=== PATIENT | female | born 1925 | race Caucasian/White ===

== ENCOUNTER 2016-10-07 19:08 | Inpatient (IN) | payer MEDICARE, OTHER ==
[~2016-10-07] VITALS: Ht 167.6 cm; Wt 65.8 kg
[2016-10-07 21:54] LABS: BASOPHILS 0.2 % (0-2); EOSINOPHILS 0.7 % (0-7); HEMOGLOBIN 14.4 g/dL (12-16); IMMATURE GRANULOCYTES 0.5 % (0-5); LYMPHOCYTES 10.3 % (15-50); MCH 31.9 pg (26.0-34.0); MCHC 33.5 g/dL (31.0-37.0); MCV 95.1 fL (80.0-100.0); MEAN PLATELET VOLUME 11.3 fL (7.4-10.4); MONOCYTES 7.6 % (2-11); NEUTROPHILS 80.7 % (40-80); PLATELET COUNT 174 10x3/uL (130-400); RBC 4.52 10x6/uL (4.00-5.40); RDW 14.5 % (11.5-14.5); WBC 12.4 10x3/uL (4.8-10.8)
[2016-10-07 22:03] LABS: ANION GAP 13.1 mmol/L (8-16); CALCIUM 9.1 mg/dL (8.5-10.1); CARBON DIOXIDE 27.6 mmol/L (21.0-32.0); CREATININE - SERUM 1.1 mg/dL (0.6-1.3); POTASSIUM - SERUM 4.7 mmol/L (3.5-5.1)
[2016-10-07] MEDS ORDERED: TENORMIN50 MG PO (22:06)
[2016-10-07] MEDS ORDERED: ALDACTONE25 MG PO (22:08)
[2016-10-07] MEDS ORDERED: ZANTAC150 MG PO (22:08)
[2016-10-07] MEDS ORDERED: PROTONIX40 MG PO (22:09)
[2016-10-07] MEDS ORDERED: ELIQUIS2.5 MG PO (22:09)
[2016-10-07] MEDS ORDERED: PROZAC20 MG PO (22:09)
[2016-10-07] MEDS ORDERED: LEVOXYL100 MCG PO (22:10)
[2016-10-07] MEDS ORDERED: XANAX0.25 MG PO (22:10)
[2016-10-07] MEDS ORDERED: VITAMIN D31000 UNIT PO (22:43)
[2016-10-07] MEDS ORDERED: TUMS X-STR300 MG PO (22:44)
[2016-10-07] MEDS ORDERED: ACETAMINOPHEN500 M1 PO (22:45)
--- NOTE | 2016-10-07 22:59 | NUR ---
RECVVIEVED FROM ER. ALERT ORIENTD. PATIENT IS [place]. ACCOMPANIED BY GROUP HOME STAFF.CC. FRACTURED RIGHT HIP. SL TO LAC INTACT WIHTOUT REDNESS OR EDEMA NOTED. ORIENTED TO ROOM. CL IN REACH
[2016-10-07 23:38] VITALS: BP 174/96; BMI 21.0
--- NOTE | 2016-10-08 02:15 | NUR ---
RESTING QUIETLY. NO DISTESS NOTED. CL IN REACH
[2016-10-08 04:00] VITALS: BP 127/77
--- NOTE | 2016-10-08 04:45 | NUR ---
RESTING QUIETLY. NO DISTRESS NOTED. CL IN REACH. MARCOS AALIYAH ON.
[2016-10-08 06:11] LABS: BASOPHILS 0.2 % (0-2); EOSINOPHILS 0.2 % (0-7); HEMATOCRIT 40.3 % (36.0-48.0); HEMOGLOBIN 13.6 g/dL (12-16); IMMATURE GRANULOCYTES 0.3 % (0-5); LYMPHOCYTES 10.5 % (15-50); MCH 31.9 pg (26.0-34.0); MCHC 33.7 g/dL (31.0-37.0); MCV 94.6 fL (80.0-100.0); MEAN PLATELET VOLUME 11.4 fL (7.4-10.4); MONOCYTES 8.8 % (2-11); PLATELET COUNT 162 10x3/uL (130-400); RBC 4.26 10x6/uL (4.00-5.40); RDW 14.4 % (11.5-14.5); WBC 9.7 10x3/uL (4.8-10.8)
--- NOTE | 2016-10-08 07:50 | NUR ---
PT AOX4 RESP EVEN AND NONLABORED PT DENIES NEEDS AT THIS TIME IV TO LEFT AC PATENT AT THIS TIME SRX2 BED AT LOWEST SETTING CALL LIGHT WITHIN REACH WILL CONTINUE TO MONITOR
[2016-10-08 08:31] VITALS: BP 157/81
--- NOTE | 2016-10-08 10:01 | NUR ---
Patient Name: ERIK BURROUGHS Admission Status: ER Accout number: [id number] Admission Date: 10-07-2016 : 1925 Admission Diagnosis:FRACTURE OF UNSP PART OF NECK OF RIGHT FEMUR, INIT Attending: JALEEL Current LOS: 1 Anticipated DC Date: 10-12-2016 Planned Disposition: Home with Home Health Primary Insurance: MEDICARE A & B Discharge Planning Comments: CM MET WITH PATIENT REGARDING D/C NEEDS AND PLANS. PATIENT STATED SHE LIVES AT THE [facility] ([facility]SI[facility]ING). PATIENT STATED SHE USES A WALKER AT TIMES AND HAS NO OTHER DME AT HOME. PATIENT HAS ASSISTANCE WITH HER MEDICATION AT THE FACILITY. PATIENTS PCP IS DR. HUANG AND USES [facility] ON [facility]. PATIENT KNOWS SHE WILL NEED REHAB AT DISCHARGE AND WANTS TO GO TO IP REHAB. CM WILL CONTINUE TO FOLLOW PATIENT WITH D/C NEEDS AND PLANS. PCP DR. SAL [facility] ON [facility] [phone] JEANA (SON) Tmd Teacher: Pricila Castro Is the patient Alert and Oriented? Yes 0 * How many steps to enter\exit or inside your home? 0 0 * PCP DR. HUANG 0 * Pharmacy [facility] ON [address]- [phone] * Preadmission Environment Assisted Living 0 * Facility Name [facility] 0 * ADLs Partial Dependent 0 * Partial ADLs (Assistance needed) Medication Management 0 * Equipment Walker 0 * List name and contact numbers for known caregivers / representatives who currently or will assist patient after discharge: JEANA (SON) [phone] (IN CHARGE OF EVERYTHING PER PATIENT) 0 * Community resources currently utilized Assisted Living 0 * Please name any agencies selected above. [facility] 0 * Additional services required to return to the preadmission environment? Yes 0 * Can the patient safely return to the preadmission environment? No 0 * Has this patient been hospitalized within the prior 30 days at any hospital? No 0 Grand Total: 0
[2016-10-08 10:58] VITALS: Ht 167.6 cm; Wt 65.8 kg
--- NOTE | 2016-10-08 11:48 | NUR ---
Rehab Note- The patient is scheduled for hip surgery. Will follow at this time for an acute inpatient rehab stay at [facility] when ready for discharge from the acute hospital. Thank you for this referral! Crystal Paris RN Clinical Liaison, [facility] Re[facility]
[2016-10-08 12:00] VITALS: BP 131/69
--- NOTE | 2016-10-08 16:04 | NUR ---
PT TAKEN TO SURGERY VIA BED AT THIS TIME
[2016-10-08 16:14] LABS: APPEARANCE CLEAR (CLEAR); BILIRUBIN NEGATIVE (NEGATIVE); COLOR YELLOW (YELLOW); GLUCOSE NEGATIVE (NEGATIVE); KETONE NEGATIVE (NEGATIVE); LEUKOCYTE ESTERASE NEGATIVE (NEGATIVE); NITRITE NEGATIVE (NEGATIVE); PROTEIN TRACE mg/dL (NEGATIVE); UROBILINOGEN NORMAL (NORMAL)
[2016-10-08 16:16] LABS: BACTERIA FEW /hpf (NONE SEEN); EPITHELIAL CELLS RARE /hpf (0-5); RED CELLS - URINE >50 /hpf (0-5); WHITE CELLS - URINE RARE /hpf (0-5)
[2016-10-08 21:11] VITALS: BP 105/66
--- NOTE | 2016-10-08 21:15 | NUR ---
RECIEVED FROM RECOVERY. DROWSY BUT RESPONDS TO VERBAL STIMULI. RESP EVEN AND UNALBORED. SPO2 @ 93% ON 2L PER NC. DRSG TO RIGHT HIP DRY/INTAC. NO DRAINAGE NOTED. PEREZ PATENT AND DRAINING CLEAR YELLOW URINE,. IV INFUSING TO LEFT HAND WIHTOUT REDNESS OR EDEMA NOTED. MARCOS AALIYAH ON. CL IN REACH
--- NOTE | 2016-10-08 23:31 | NUR ---
RN NOTE: PT BECAME COMBATIVE AND PULLED OFF DRESSING ON HIP AND PULLED OUT IV. RE-SITED IV TO RIGHT FA WITH 2 PERSON ASSIST USING 20 GUAGE CATHETER. GAVE ATIVAN 0.5 MG IVP PER PRN ORDER. PT CALMER NOW AND NOT FIGHTING HAVING DRESSING AND TELEMETRY BACK ON. WILL CONTINUE TO MONITOR FOR NEEDS.
[2016-10-09 00:05] VITALS: BP 137/78
[2016-10-09 04:00] VITALS: BP 159/69
--- NOTE | 2016-10-09 04:49 | NUR ---
RN NOTE: PT RESTING QUIETLY AT THIS TIME WITH EASY RESPIRATIONS. IV IN RIGHT FA PATENT WITH NS INFUSING AT 75 ML / HR. BED ALARM IN USE.
[2016-10-09 05:41] LABS: BASOPHILS 0.1 % (0-2); EOSINOPHILS 0 % (0-7); HEMATOCRIT 36.3 % (36.0-48.0); HEMOGLOBIN 12.3 g/dL (12-16); IMMATURE GRANULOCYTES 0.2 % (0-5); LYMPHOCYTES 7.5 % (15-50); MCH 31.9 pg (26.0-34.0); MCHC 33.9 g/dL (31.0-37.0); MCV 94.3 fL (80.0-100.0); MEAN PLATELET VOLUME 12.2 fL (7.4-10.4); MONOCYTES 9.3 % (2-11); NEUTROPHILS 82.9 % (40-80); PLATELET COUNT 139 10x3/uL (130-400); RBC 3.85 10x6/uL (4.00-5.40); RDW 14.4 % (11.5-14.5); WBC 11.4 10x3/uL (4.8-10.8)
[2016-10-09 06:03] LABS: ALBUMIN 2.9 g/dL (3.4-5.0); BILIRUBIN - TOTAL 1.09 mg/dL (0.2-1.3); CALCIUM 8.2 mg/dL (8.5-10.1); CARBON DIOXIDE 22.7 mmol/L (21.0-32.0); POTASSIUM - SERUM 4.7 mmol/L (3.5-5.1); PROTEIN - SERUM 6.5 g/dL (6.4-8.2)
[2016-10-09 06:04] LABS: CREATININE - SERUM 0.8 mg/dL (0.6-1.3)
--- NOTE | 2016-10-09 07:45 | NUR ---
PT AOX1 RESP EVEN AND NONLABORED PT DENIES NEEDS AT THIS TIME IV TO RIGHT FOREARM PATENT AND INTACT AT THIS TIME SRX2 BED AT LOWEST SETTING CALL LIGHT WITHIN REACH POSIMAT ON BED AND FUNCTIONING PROPERLY
[2016-10-09 07:55] VITALS: BP 167/94
--- NOTE | 2016-10-09 11:09 | OP ---
PATIENT NAME: ERIK BLAS MEDICAL RECORD: [id number] :[birth year] LOCATION:[id number] ADMISSION DATE:10/07/16 SURGEON: POOL WEI, DATE OF OPERATION: 10/08/2016 PROCEDURE PERFORMED: Right clinton hip arthroplasty. PREOPERATIVE DIAGNOSIS: Right femoral neck fracture that was displaced. POSTOPERATIVE DIAGNOSIS: Right femoral neck fracture that was displaced. INDICATIONS: Ms. Blas is an 89-year-old female who fell from standing height yesterday on 10/07/2016 and sustained a right femoral neck fracture. She was transferred to the Emergency Room and was seen in the Emergency Room and admitted overnight and surgery was performed today. SURGEON: Pool Wei D.O. DESCRIPTION OF PROCEDURE: The patient was consented preoperatively and in PACU and once that was done, and having discussed with her son who is the power of heel sewer, we proceeded for the procedure. She was taken to the operative suite, placed in supine position and given general anesthetic and was intubated. She was then moved over to the table and the left leg was placed in a well leg antony and the right leg was placed in ____ leg antony. At that time, a timeout was performed and she was indicated to correct side, site and correct patient and she was given a gram of Ancef preoperatively. After a timeout was done, the patient was prepped and draped in sterile fashion. The incision was marked out and a 10 blade knife was used to make an 8-cm incision over the right anterolateral hip. Careful dissection was made down to the fascia of the tensor fascia vinicio. Fascia was then divided and the muscle belly was swept off the fascia anteriorly. The next ____ was identified of rectus muscle and fascia was taken off of that. At that time, the ascending branch to the lateral femoral circumflex artery was identified. The Aquamantys was used to coagulate the site and the artery and veins were divided using a Bovie. Dissection was then carefully made down to the capsule. Capsulotomy was performed and tagged. The capsule was tagged and the fracture was seen. Fracture hematoma was suctioned out and the femoral head was extracted from the acetabulum. Hemostasis was performed throughout the whole procedure. We then sized the acetabulum. Femoral head was seen to be a 47. The femur was then prepped and a cookie cutter was used to get into the canal and then ____ rasp was used. We broached up to 5 and decided to cement a 4 and the canal was then prepped after further neck cuts were made to make a better neck cut and cement restrictor was placed in the canal. Cement was mixed with tobramycin and placed into the femoral canal. At that time, the implant with femoral stem was placed and held in place while the cement hardened. This was all done after trialing the sizes and once the cement had hardened, the bipolar head assembly was placed on the stem and the hip was reduced. It was seen to be in good position and did not dislocate easily, not at all after being externally rotated to 90 degrees and a shuck test was performed and did not come out of the acetabulum. The site was then irrigated copiously with normal saline and the capsule was closed using a 2-0 Ethibond in a botjxa-da-ijqdl stitch. The fascia was then closed using one 2-0 Ethibond in a qbvzth-pw-izjuf stitch and then 0 Vicryl was ran along the fascia to close it. The skin was then closed using 2-0 Vicryl in inverted interrupted fashion. The skin was closed with 4-0 Monocryl in a running subcuticular stitch and Dermabond was placed over the site. A Telfa and a Tegaderm was placed over OPERATIVE REPORT [id number] ERIK BLAS the site. The patient was awakened in the operating room and stable in recovery and taken to PACU. ESTIMATED BLOOD LOSS: Approximately 100 mL. TRANSINT:[id number] Voice Confirmation ID: [id number] DOCUMENT ID: [id number] POOL WEI DO at 1109 CC: [id number] DICTATION DATE: 10/08/162037 ARCHIVES SPECIALIST: 10/08/162209 ADM IN [place] [id number] [place] [id number]
[2016-10-09 16:20] VITALS: BP 138/89
[2016-10-09 20:00] VITALS: BP 181/93
--- NOTE | 2016-10-09 20:26 | NUR ---
rec'd. screaming out.alert but became confused post op.continues to take monitor off.drsg.dry and intact to rt. hip.foot warm pedal pulse present.wiggles toes and foot when touching bottom of foot' cindy uli intact will continue to monitor for any chges.in neurovascular status and follow current plan of care.
--- NOTE | 2016-10-09 22:59 | NUR ---
PT SLEEPING ATT, BED LOW AND LOCKED, CALL LIGHT IN REACH. NO S&S OF ACUTE DISRTESS NOTED. WILL CPOC.
[2016-10-10 06:27] LABS: BASOPHILS 0.1 % (0-2); EOSINOPHILS 0.1 % (0-7); HEMOGLOBIN 11.8 g/dL (12-16); IMMATURE GRANULOCYTES 0.3 % (0-5); LYMPHOCYTES 7.5 % (15-50); MCH 31.6 pg (26.0-34.0); MCHC 33.7 g/dL (31.0-37.0); MCV 93.6 fL (80.0-100.0); MEAN PLATELET VOLUME 12.7 fL (7.4-10.4); MONOCYTES 7.6 % (2-11); NEUTROPHILS 84.4 % (40-80); PLATELET COUNT 143 10x3/uL (130-400); RBC 3.74 10x6/uL (4.00-5.40); RDW 14.1 % (11.5-14.5); WBC 12.3 10x3/uL (4.8-10.8)
[2016-10-10 07:12] LABS: ALKALINE PHOSPHATASE 64 U/L (46-116); ALT (SGPT) 29 U/L (10-68); CALC OSMOLALITY 273 mosm/kg (275-300); CALCIUM 8.6 mg/dL (8.5-10.1); CARBON DIOXIDE 20.3 mmol/L (21.0-32.0); CHLORIDE - SERUM 100 mmol/L (98-107); CREATININE - SERUM 0.7 mg/dL (0.6-1.3); GLUCOSE 129 mg/dL (74-106); PROTEIN - SERUM 6.6 g/dL (6.4-8.2); SODIUM 134 mmol/L (136-145); UREA NITROGEN 25 mg/dL (7-18); eGFR NON AFRICAN AMERICAN 83 mL/min (90-120)
[2016-10-10 07:14] LABS: POTASSIUM - SERUM 3.7 mmol/L (3.5-5.1)
[2016-10-10 07:57] VITALS: BP 150/94
--- NOTE | 2016-10-10 08:39 | NUR ---
PEREZ PLACED PER ORDER IF PT WASN'T URINATING TO REPLACE PEREZ CATH PER URINARY RETENTION, AFTER PLACING PEREZ 1000 CC OF URINE CAME OUT, NO DISCOMFORT NOTED, WILL CONTINUE TO MONITOR
--- NOTE | 2016-10-10 09:00 | NUR ---
PATIENT IN LOW PEREZ POSITION RESTING QUIETLY WITH EYES CLOSED. RESPIRATIONS EVEN AND UNLABORED. SIDE RAILS UP X2. BED IN LOW POSITION. CALL LIGHT IN REACH.
--- NOTE | 2016-10-10 10:50 | NUR ---
SLEEPING, NO DISTRESS NOTED, BED LOWEST POSITION, CALL LIGHT IN REACH, WILL CONTINUE TO MONITOR
[2016-10-10 12:01] VITALS: BP 160/91
[2016-10-10 16:32] VITALS: BP 164/97
[2016-10-10 20:00] VITALS: BP 165/96
[2016-10-11] VITALS: BP 123/93
--- NOTE | 2016-10-11 03:21 | NUR ---
ASSESSED AT THE BEGINNING OF THE SHIFT. PT IS CONFUSED AND VERY ANXIOUS IF AWAKENED. SHE SLEPT THE FIRST OF THE SHIFT. AND THEN STARTED BEMOMING MORE RESTLY. SHE REFUSES TO WEAR HER GOUN AND AND WHEN DISCUSSED WITH HER SHE IS NOT COLD AND DOSENT CARE WHO SEE'S HER NAKED. HER PEREZ REMAINS IN PLACE AND HER IV SITE IS STILL UNTOUCHED DUE TO ADONIS WRAP SHE HAS OVER IT. THE DRESSING TO HER RIGHT HIP IS CLEAN DRY AND INPLACE. SHE WAS GIVEN NORCO FOR PAIN AND XANAX FOR ANXIETY JUST A WHILE AGO. AT HIS TIME SHE IS RESTING AND THE BED IS LOW, RAILS UP X'S 2 WITH THE CALL LIGHT AT HAND.
[2016-10-11 06:49] LABS: BASOPHILS 0.1 % (0-2); EOSINOPHILS 1.8 % (0-7); HEMOGLOBIN 11.4 g/dL (12-16); IMMATURE GRANULOCYTES 0.3 % (0-5); LYMPHOCYTES 8.4 % (15-50); MCH 31.4 pg (26.0-34.0); MCHC 33.5 g/dL (31.0-37.0); MCV 93.7 fL (80.0-100.0); MEAN PLATELET VOLUME 11.9 fL (7.4-10.4); MONOCYTES 8.4 % (2-11); PLATELET COUNT 155 10x3/uL (130-400); RBC 3.63 10x6/uL (4.00-5.40); RDW 14.3 % (11.5-14.5)
[2016-10-11 06:51] LABS: WBC 9.1 10x3/uL (4.8-10.8)
[2016-10-11 07:06] LABS: ALBUMIN 2.6 g/dL (3.4-5.0); ALKALINE PHOSPHATASE 67 U/L (46-116); ALT (SGPT) 23 U/L (10-68); CALCIUM 8.4 mg/dL (8.5-10.1); CHLORIDE - SERUM 102 mmol/L (98-107); CREATININE - SERUM 0.7 mg/dL (0.6-1.3); GLUCOSE 100 mg/dL (74-106); POTASSIUM - SERUM 3.7 mmol/L (3.5-5.1); PROTEIN - SERUM 6.4 g/dL (6.4-8.2); SODIUM 135 mmol/L (136-145); eGFR NON AFRICAN AMERICAN 83 mL/min (90-120)
[2016-10-11 07:07] LABS: CALC OSMOLALITY 276 mosm/kg (275-300); CARBON DIOXIDE 25.5 mmol/L (21.0-32.0); UREA NITROGEN 32 mg/dL (7-18)
--- NOTE | 2016-10-11 07:30 | NUR ---
RECIEVED PT DURING WALKING ROUNDS. PT RESTING IN BED WITH NO VISABLE SIGNS OF PAIN OR DISCOMFORT. ASSESSMENT DONE PER FLOWSHEET. PT CONFUSED AND PULLING AT GOWN AT THIS TIME. ATTEMPTED TO RE-ORIENT PT. BED IN LOW POSITION AND CALL LIGHT WITHIN REACH. WILL CONTINUE TO MONTIOR.
[2016-10-11 07:52] VITALS: BP 140/92
--- NOTE | 2016-10-11 12:00 | NUR ---
PT WAS ABLE TO STATE LOCATION, HER NAME AND WHAT YEAR IT WAS. PT KNEW WHAT HAD HAPPENED WITH SURGERY ECT. PT ASKED WHY I WAS ASKING HER QUESTIONS, EXPLAINED TO THE PT THAT SHE HAD BEEN CONFUSED AND PT BECAME VERY UPSET, WAS ABLE TO CALM THE PT DOWN. FURTHER EXPLAINED TO HER HER PLAN OF CARE. BED IN LOW POSITION AND CALL LIGHT WITHIN REACH. WILL CONTINUE TO MONITOR.
[2016-10-11 12:35] VITALS: BP 158/80
--- NOTE | 2016-10-11 15:50 | NUR ---
SPOKE WITH DR. MARCOS AT THIS TIME ABOUT PTS URINE OUTPUT. STATED THAT SHE WOULD LOOK AT PT AND PLACE ORDERS NEEDED. WILL CONTINUE TO MONITOR.
[2016-10-11 15:53] VITALS: BP 153/69
--- NOTE | 2016-10-11 19:35 | NUR ---
RECIEVED SHIFT REPORT. PT IS LYING IN BED. PT IS ORIENTED TO SELF ONLY. IV IS PATENT AND FLUIDS ARE RUNNING PER ORDER. PT DENIES ANY PAIN AT THIS TIME. PT REQUIRES MINIMAL ASSISTANCE TURNING IN BED FOR COMFORT AND SKIN CARE. PEREZ IS DRAINING URINE BY GRAVITY. DRESSING TO RIGHT HIP C/D/I. SCD'S OFF AT THIS TIME. O2 @ 2 PER NASAL CANNULA. NO NEEDS ARE VERBALIZED AT THIS TIME. WILL CONTINUE TO MONITOR. SIDE RAILS ARE UP X 2. BED IS IN LOWEST POSITION. MARCOS MAT IS ON FOR SAFETY. CALL LIGHT IS WITHIN REACH.
[2016-10-11 20:00] VITALS: BP 140/84
--- NOTE | 2016-10-11 21:00 | NUR ---
PT IN ROOM YELLING OUT FOR MOMMA. PT IS NOT ABLE TO BE ORIENTED AT THIS TIME. PT PULLING AT PEREZ AND IV. ADMINISTERED PRESCRIBED PRN ATIVAN PER ORDER. SHIFT ASSESSMENT COMPLETED. WILL MONITOR. SIDE RAILS X 2. BED IS LOW. MARCOS ON. CALL LIGHT IN REACH.
--- NOTE | 2016-10-11 23:03 | NUR ---
PT SCRATCHING AT INCISION SITE. ADMINISTERED PRESCRIBED PRN BENADRYL PER ORDER. WILL MONITOR. SIDE RAILS X 2. BED LOW. MARCOS ON. CALL LIGHT IN REACH.
[2016-10-12 04:00] VITALS: BP 142/90
[2016-10-12 04:54] LABS: BASOPHILS 0.1 % (0-2); EOSINOPHILS 2.3 % (0-7); HEMATOCRIT 33.8 % (36.0-48.0); HEMOGLOBIN 11.4 g/dL (12-16); IMMATURE GRANULOCYTES 0.2 % (0-5); LYMPHOCYTES 9.6 % (15-50); MCH 31.6 pg (26.0-34.0); MCHC 33.7 g/dL (31.0-37.0); MCV 93.6 fL (80.0-100.0); MEAN PLATELET VOLUME 12.1 fL (7.4-10.4); MONOCYTES 9.7 % (2-11); NEUTROPHILS 78.1 % (40-80); PLATELET COUNT 167 10x3/uL (130-400); RBC 3.61 10x6/uL (4.00-5.40); RDW 14.1 % (11.5-14.5); WBC 8.4 10x3/uL (4.8-10.8)
[2016-10-12 05:15] LABS: ALBUMIN 2.6 g/dL (3.4-5.0); ANION GAP 14.3 mmol/L (8-16); BILIRUBIN - TOTAL 1.2 mg/dL (0.2-1.3); CALCIUM 8.4 mg/dL (8.5-10.1); CARBON DIOXIDE 22.1 mmol/L (21.0-32.0); POTASSIUM - SERUM 3.4 mmol/L (3.5-5.1); PROTEIN - SERUM 6.3 g/dL (6.4-8.2)
[2016-10-12 05:20] LABS: CREATININE - SERUM 0.9 mg/dL (0.6-1.3)
--- NOTE | 2016-10-12 08:08 | NUR ---
AWAKE AND ALERT. ORIENTED TO SELF ONLY. LUNGS HAVE FAINT CRACKLES IN BILATERALL LOWER LOBES. NO COUGH NOTED. SKIN IS INTACT WITHOUT REDNESS EXCEPT INCISION TO RIGHT HIP WHICH HAS A DRY INTACT DRESSING IN PLACE. PEREZ PATNET WITH CLEAR YELLOW URINE. IV TO RIGHT FOREARM IS PATNET WITHOUT REDNESS AT INSERTION SITE. DENIES NEEDS. BP UP THIS AM. WILL TREAT PAIN AND MONITOR.
[2016-10-12 08:23] VITALS: BP 192/92
--- NOTE | 2016-10-12 09:00 | NUR ---
VERY RESTLESS AND BP ELEVATED. GIVEN ONE HYDROCODONE PO FOR SAME. WILL MONITOR.
--- NOTE | 2016-10-12 10:30 | NUR ---
FINALLY TOOK ALL OF AM MEDS. CONTINUES TO SIP ON POTASSIUM. SYMPTOMS OF PAIN DECREASED.
[2016-10-12 12:05] VITALS: BP 137/78
--- NOTE | 2016-10-12 12:30 | NUR ---
CLEAR LIQUID TRAY SERVED IN ROOM. REFUSSED TO EAT AT THIS TIME.
--- NOTE | 2016-10-12 14:00 | NUR ---
VERY RESTLESS AT THIS TIME. TALKED WITH HER ABOUT FAMILY TO HELP CALM HER. DENIES PAIN AT THIS TIME. WILL MONITOR.
--- NOTE | 2016-10-12 15:04 | NUR ---
NUTRIITON MONITORING & EVAL CHART REVIEWED. SPOKE WITH NURSING, DIET ADVANCED TO REG SOFT FOR DINNER. WILL MONITOR INTAKE. RD FOLLOWING
[2016-10-12 16:05] VITALS: BP 115/70
--- NOTE | 2016-10-12 17:45 | NUR ---
ATE A FEW BITES OF REGULAR FOOD WITH ASSIST FROM STAFF. REFUSED MORE. NO CHANGES NOTED. URINE OUTPUT IS LOW THIS SHIFT AT 250cc. WILL MONITOR.
--- NOTE | 2016-10-12 19:30 | NUR ---
RECIEVED SHIFT REPORT. PT IS LYING IN BED. PT IS CONFUSED AND ONLY ORIENTED TO SELF AT THIS TIME. PT IS TUGGING AT PEREZ AND ROLLING AROUND IN THE BED. PEREZ HAS MINIMAL DRAINAGE IN PEREZ BAG AT THIS TIME. IV IS PATENT AND FLUIDS ARE RUNNING PER ORDER. SCD'S OFF AT THIS TIME. DRESSING TO RIGHT HIP C/D/I. WILL CONTINUE TO MONITOR. SIDE RAILS ARE UP X 3. BED IS IN LOWEST POSITION. MARCOS MAT IS ON FOR SAFETY. CALL LIGHT IS WITHIN REACH.
[2016-10-12 20:00] VITALS: BP 127/79
--- NOTE | 2016-10-12 20:33 | NUR ---
SHIFT ASSESSMENT COMPLETED. PT HAS MINIMAL GRIMACE ON FACE AND IS STILL PULLING AT HER LINES. ADMINISTERED PRESCRIBED PRN NORCO AND XANAX PER ORDER. WILL MONITOR. SIDE RAILS X 3. BED LOW. MARCOS ON. CALL LIGHT IN REACH.
[2016-10-13 02:13] LABS: BASOPHILS 0.1 % (0-2); EOSINOPHILS 0.2 % (0-7); HEMATOCRIT 32.5 % (36.0-48.0); HEMOGLOBIN 11.2 g/dL (12-16); IMMATURE GRANULOCYTES 0.6 % (0-5); LYMPHOCYTES 7.1 % (15-50); MCH 31.8 pg (26.0-34.0); MCHC 34.5 g/dL (31.0-37.0); MCV 92.3 fL (80.0-100.0); MEAN PLATELET VOLUME 11.8 fL (7.4-10.4); MONOCYTES 8.2 % (2-11); NEUTROPHILS 83.8 % (40-80); PLATELET COUNT 197 10x3/uL (130-400); RBC 3.52 10x6/uL (4.00-5.40); RDW 14.1 % (11.5-14.5); WBC 9.7 10x3/uL (4.8-10.8)
[2016-10-13 02:34] LABS: ALBUMIN 2.8 g/dL (3.4-5.0); ANION GAP 17.9 mmol/L (8-16); BILIRUBIN - TOTAL 1.9 mg/dL (0.2-1.3); CALCIUM 8.6 mg/dL (8.5-10.1); CREATININE - SERUM 0.9 mg/dL (0.6-1.3); POTASSIUM - SERUM 3.9 mmol/L (3.5-5.1); PROTEIN - SERUM 6.1 g/dL (6.4-8.2)
--- NOTE | 2016-10-13 02:50 | NUR ---
BLADDER SCAN REVEALS NO URINE IN BLADDER. PT WITH NO DISTENTION TO BLADDER. WILL CALL MD POPCORN MACHINE OPERATOR FOR ORDERS.
--- NOTE | 2016-10-13 03:00 | NUR ---
PT WITH 175ML DARK URINE OUTPUT. PAGE PLACED TO BOBBY. WILL AWAIT CALL BACK.
--- NOTE | 2016-10-13 03:30 | NUR ---
NO CALL BACK AT THIS TIME. WILL CALL ANSWERING SERVICE AND HAVE PAGED AGAIN.
--- NOTE | 2016-10-13 03:35 | NUR ---
CALL RECIEVED BACK FROM BOBBY STERILE TECHNICIAN. INFORMED OF URINE OUTPUT AND BLADDER SCAN RESULTS. NEW ORDERS FOR 200ML BOLUS AND INCREASE IVF TO 100ML/HR. WILL MONITOR.
--- NOTE | 2016-10-13 03:40 | NUR ---
BOLUS STARTED AT THIS TIME.
[2016-10-13 04:00] VITALS: BP 139/75
--- NOTE | 2016-10-13 07:43 | NUR ---
AROUSES TO VERBAL STIMULATION. ORIENTED TO SELF ONLY. LUNGS ARE CLEAR BILATERALLLY, NO COUGH NOTED. SKIN IS INTACT WITHOUT REDNESS EXCEPT INCISION TO RIGHT HIP WHICH HAS A DRY INTACT DRESSING IN PLACE. IV TO RIGHT FOREARM IS PATENT WITHOUT REDNESS AT INSERTION SITE. NO NEEDS NOTED. PEREZ PATENT WITH DARK TEA COLORED URINE.
[2016-10-13 09:05] VITALS: BP 122/78
--- NOTE | 2016-10-13 12:14 | NUR ---
PT SEEN FOR ASSESSMENT. 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 BUODROS APPLIED TO BUTTOCK AND TURNED ON SIDE. MARCOS MAT ON FOR SAFETY. CALL LIGHT IN REACH
[2016-10-13 13:22] VITALS: BP 163/80
--- NOTE | 2016-10-13 13:49 | NUR ---
PT TURNED FREQ FROM SIDE TO SIDE. CURRENTLY POSITIONED ON RIGHT SIDE FOR COMFORT WITH PILLOW TO BACK AND 1 BETWEEN KNEES. RESTING WITH EYES CLOSED AND RESP EVEN AND UNLABORED. MARCOS MAT ALARM ON FOR SAFETY AND CALL LIGHT IN REACH
[2016-10-13 17:36] VITALS: BP 142/79
--- NOTE | 2016-10-13 17:50 | NUR ---
SON CALLED THIS AFTERNOON. WILL BE HERE TOMORROW TO HELP PLACE MOM. TURNED FREQ AND CURRENTLY ON BACK. DRESSING REPLACED RIGHT HIP-PULLED OFF EARILER. PEREZ WITH DARK MACO URINE. MARCOS ALARM ON FOR SAFETY. CALL LIGHT IN REACH
--- NOTE | 2016-10-13 19:40 | NUR ---
RECIEVED SHIFT REPORT. PT IS LYING IN BED. PT IS CONFUSED AND PULLING AT PEREZ. PT APPEARS TO BE IN NO DISTRESS, JUST AGITATED AND RESTLESS. IV IS PATENT AND FLUIDS ARE RUNNING PER ORDER. PT TURNS SELF IN BED OFTEN. SCD'S OFF AT THIS TIME. IV IS PATENT AND FLUIDS ARE RUNNING PER ORDER. WILL CONTINUE TO MONITOR. SIDE RAILS ARE UP X 3. BED IS IN LOWEST POSITION. MARCOS MAT IS ON FOR SAFETY. CALL LIGHT IS WITHIN REACH.
[2016-10-13 20:00] VITALS: BP 147/85
--- NOTE | 2016-10-13 20:05 | NUR ---
SHIFT ASSESSMENT COMPLETED. PT IN BED PULLING AT PEREZ AND PULLING AT IV. PT TRYING TO CLIMB OUT OF BED. PT VERY ANXIOUS AND RESTLESS AT THIS TIME. ADMINISTERED PRESCRIBED PRN ATIVAN PER ORDER. WILL MONITOR. SIDE RAILS X 2. BED LOW. MARCOS ON. CALL LIGHT IN REACH.
[2016-10-14 05:50] LABS: BASOPHILS 0.1 % (0-2); EOSINOPHILS 0.1 % (0-7); HEMATOCRIT 34.1 % (36.0-48.0); HEMOGLOBIN 11.5 g/dL (12-16); IMMATURE GRANULOCYTES 1.3 % (0-5); LYMPHOCYTES 7.8 % (15-50); MCH 31.6 pg (26.0-34.0); MCHC 33.7 g/dL (31.0-37.0); MCV 93.7 fL (80.0-100.0); MEAN PLATELET VOLUME 11.5 fL (7.4-10.4); MONOCYTES 7.9 % (2-11); NEUTROPHILS 82.8 % (40-80); PLATELET COUNT 193 10x3/uL (130-400); RBC 3.64 10x6/uL (4.00-5.40); RDW 14.7 % (11.5-14.5)
[2016-10-14 06:01] LABS: WBC 15.3 10x3/uL (4.8-10.8)
[2016-10-14 06:09] LABS: ALBUMIN 3.1 g/dL (3.4-5.0); BILIRUBIN - TOTAL 2.66 mg/dL (0.2-1.3); CALCIUM 8.4 mg/dL (8.5-10.1); CARBON DIOXIDE 17.3 mmol/L (21.0-32.0); CREATININE - SERUM 0.9 mg/dL (0.6-1.3)
[2016-10-14 06:13] LABS: ANION GAP 19.2 mmol/L (8-16); POTASSIUM - SERUM 4.5 mmol/L (3.5-5.1)
[2016-10-14 09:41] VITALS: BP 120/67
--- NOTE | 2016-10-14 10:29 | NUR ---
Rehab Note- Attempted to visit with the patient, patient didn't respond to verbal stimuli. The patient is having labored breathing with 2L/NC oxygen, and constantly moving in the bed- spoke with the patient's nurse and viewed the patient- stated this has been her normal since having surgery. The patient is unable to participate in the required 3hrs of therapy per day. Spoke with NICANOR Mcnulty- stated that she was going to call her son to discuss discharge options. Thank you for this referral! Crystal Paris RN Clinical Liaison, [facility] Re[facility]
[2016-10-14 12:55] VITALS: BP 126/62
[2016-10-14 13:08] LABS: AMYLASE - SERUM 71 U/L (25-115); LIPASE 217 U/L (73-393)
[2016-10-14 14:39] LABS: APPEARANCE HAZY (CLEAR); BACTERIA FEW /hpf (NONE SEEN); COLOR AMBER (YELLOW); LEUKOCYTE ESTERASE TRACE (NEGATIVE); MUCUS <1+ /lpf (NONE SEEN); RED CELLS - URINE >50 /hpf (0-5); WHITE CELLS - URINE 0-5 /hpf (0-5)
[2016-10-14 14:40] LABS: BILIRUBIN NEGATIVE (NEGATIVE); GLUCOSE NEGATIVE (NEGATIVE); KETONE NEGATIVE (NEGATIVE); PROTEIN 1+ mg/dL (NEGATIVE); UROBILINOGEN NORMAL (NORMAL)
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
--- NOTE | 2016-10-14 14:58 | NUR ---
PT CONFUSED AND NONVERBALLY RESPONSIVE AT THIS TIME SRX2 BED AT LOWEST SETTING CALL LIGHT AT THIS TIME IV TO RIGHT FOREARM PATENT AT THIS TIME SRX2 BED AT LOWEST SETTING CALL LIGHT WITHIN REACH WILL CONTINUE TO MONITOR
[2016-10-14 16:20] VITALS: BP 104/52
[2016-10-14 16:56] LABS: NITRITE NEGATIVE (NEGATIVE)
[2016-10-14 19:19] LABS: INR 2.17 (0.85-1.17); PROTIME 24.2 SECONDS (11.6-15.0)
--- NOTE | 2016-10-14 19:35 | NUR ---
RECIEVED SHIFT REPORT. PT IS LYING IN BED. PT IS CONFUSED AT THIS TIME. IV IS PATENT AND FLUIDS ARE RUNNING PER ORDER. SCD'S OFF AT THIS TIME. O2 @ 2 PER NASAL CANNULA. PEREZ WITH SMALL AMOUNT OF DARK URINE. DRESSING TO RIGHT HIP HAS BEEN PULLED OFF BY PT. PT HAS MINIMAL ANXIETY AND IS RESTLESS IN THE BED. FAMILY IS REQUESTING A SITTER TO COME IN AND STATES THEY ARE WILLING TO PAY AND IS ASKING IF THE NURSING STAFF CAN FIND SOMEONE. SIDE RAILS ARE UP X 3. BED IS IN LOWEST POSITION. MARCOS MAT IS ON FOR SAFETY. CALL LIGHT IS WITHIN REACH.
[2016-10-14 19:47] LABS: T4 THYROXINE 5.3 ug/dL (4.7-13.3); THYROID STIMULATING HORMONE 1.38 uIU/mL (0.36-3.74)
[2016-10-14 20:00] VITALS: BP 159/80
--- NOTE | 2016-10-14 20:45 | NUR ---
SITTER ARRIVED AT THIS TIME PER FAMILY REQUEST. SITTER TO SIT WITH PT FROM [phone].
--- NOTE | 2016-10-14 22:23 | NUR ---
SHIFT ASSESSMENT COMPLETED. NIGHT MEDS NOT GIVEN DUE TO PT NOT SWALLOWING AT THIS TIME. PT DOES NOT ATTEMPT TO DRINK ANY WATER WHEN OFFERED. PT RESPONDING TO PAIN AT THIS TIME AND IS MOANING. SITTER IS AT THE BEDSIDE. SIDE RAILS X 3. BED LOW. MARCOS ON. CALL LIGHT IN REACH.
--- NOTE | 2016-10-15 01:43 | NUR ---
PT IV TO RIGHT FOREARM LEAKING. D/C'D WITH CATHETER TIP INTACT. NEW IV SITED TO LEFT FOREARM X 1 ATTEMPT. 22G. GOOD BLOOD RETURN. FLUSHES W/O DIFFICULTY. FLUIDS HOOKED UP PER ORDER. SITTER AT BEDSIDE. WILL MONITOR. SIDE RAILS X 2. BED LOW. MARCOS MAT ON. CALL LIGHT IN REACH.
[2016-10-15 04:00] VITALS: BP 182/94
[2016-10-15 05:48] LABS: BASOPHILS 0.1 % (0-2); EOSINOPHILS 0.1 % (0-7); HEMATOCRIT 34.1 % (36.0-48.0); HEMOGLOBIN 11.4 g/dL (12-16); IMMATURE GRANULOCYTES 1.8 % (0-5); MCH 31.7 pg (26.0-34.0); MCHC 33.4 g/dL (31.0-37.0); MCV 94.7 fL (80.0-100.0); MEAN PLATELET VOLUME 11.7 fL (7.4-10.4); MONOCYTES 7.9 % (2-11); NEUTROPHILS 71.1 % (40-80); PLATELET COUNT 185 10x3/uL (130-400); RDW 14.9 % (11.5-14.5); WBC 17.7 10x3/uL (4.8-10.8)
[2016-10-15 07:15] LABS: ALBUMIN 3.1 g/dL (3.4-5.0); ANION GAP 20.4 mmol/L (8-16); BILIRUBIN - TOTAL 2.81 mg/dL (0.2-1.3); CALCIUM 8.4 mg/dL (8.5-10.1); CARBON DIOXIDE 17.1 mmol/L (21.0-32.0); CREATININE - SERUM 1.1 mg/dL (0.6-1.3); POTASSIUM - SERUM 4.5 mmol/L (3.5-5.1)
--- NOTE | 2016-10-15 08:36 | NUR ---
PT SEEN AND ASSESSED. NO RESPONSE TO VERBAL STIMULI. MOANS WHEN MOVED. POSITIONED CURRENTLY ON RIGHT SIDE WITH PILLOW TO BACK. BUTTOCK IS NO LONGER RED. PEREZ NOTED TO BE DARK YELLOW. SCD ON BILAT. OXYGEN IN MOUTH DUE TO MOUTH BREAKTHING. SITTER AT BEDSIDE. MARCOS ALARM ON FOR SAFETY. CALL LIGHT IN REACH
[2016-10-15 09:02] VITALS: BP 160/101
--- NOTE | 2016-10-15 09:44 | NUR ---
CM MET WITH SON (JEANA), DAUGHTER AND GRANDDAUGHTER REGARDING D/C NEEDS AND PLANS. FAMILY CHOSE [facility] FOR THEIR MOTHER WHEN SHE IS READY FOR DISCHARGE. THE [facility] FORM WAS SIGNED AND [facility] WAS CALLED. FAMILY STATED THEIR FATHER HAD BEEN AT [facility] BEFORE AND THATS WHY THEY CHOSE THE FACILITY.
[2016-10-15 12:43] LABS: TROPONIN-I 0.108 ng/mL (0.000-0.060)
[2016-10-15 13:26] VITALS: BP 175/99
--- NOTE | 2016-10-15 14:34 | NUR ---
Nutrition Follow Up: Per chart pt is unresponsive. Pt has eaten 0% x last 5 meals. No BM since admit. Labs reviewed. Meds noted including Lactulose. Rec changing diet to NPO until pt becomes responsive. RD following.
[2016-10-15 16:28] VITALS: BP 133/74
--- NOTE | 2016-10-15 18:20 | NUR ---
PT RESPIRATIONS LESS LABORED AT THIS TIME. APPEARS MORE COMFORTABLE BUT STILL UNRESPONSIVE. FAMILY CALLED TO CHECK ON PATIENT-NO CHANGE IN CONDITION. HAS BEEN TURNED EVERY 2 HOURS. BED ALARM FOR SAFETY. CALL LIGHT IN REACH
--- NOTE | 2016-10-15 18:37 | NUR ---
WENT TO REPOSITION PATIENT AND BED WAS SOAKED WITH URINE. PEREZ DRAINING STILL CLEAR YELLOW URINE. LINENS CHANGED AND SMALL BATH GIVEN. BED ALARM ON FOR SAFETY CALL LIGHT IN REACH
--- NOTE | 2016-10-15 19:23 | NUR ---
RECIEVED LYING IN BED WITH EYES CLOSED. UNRESPONSIVE TO VERBAL STIMULI OR TOUCH. DRESSING TO RIGHT HIP INTACT. O2@ 3.5 LITERS PER N/C IN PLACE. NO S/S OF DISTRESS OBSERVED.
[2016-10-15 20:00] VITALS: BP 122/84
[2016-10-16] VITALS: BP 181/76
[2016-10-16 04:00] VITALS: BP 194/104
--- NOTE | 2016-10-16 05:22 | NUR ---
IV INFILTRATED TO LEFT FA. RESTARTED IN RIGHT AC. NS INFUSING AT 30CC/HR.
[2016-10-16 05:54] LABS: BASOPHILS 0.2 % (0-2); EOSINOPHILS 0.1 % (0-7); HEMATOCRIT 34.7 % (36.0-48.0); HEMOGLOBIN 11.7 g/dL (12-16); IMMATURE GRANULOCYTES 2.5 % (0-5); MCH 31.6 pg (26.0-34.0); MCHC 33.7 g/dL (31.0-37.0); MCV 93.8 fL (80.0-100.0); MEAN PLATELET VOLUME 11.9 fL (7.4-10.4); MONOCYTES 8.3 % (2-11); NEUTROPHILS 70.9 % (40-80); PLATELET COUNT 188 10x3/uL (130-400); RDW 15.6 % (11.5-14.5); WBC 17.2 10x3/uL (4.8-10.8)
[2016-10-16 06:02] LABS: PROTIME 20.2 SECONDS (11.6-15.0)
[2016-10-16 06:09] LABS: BILIRUBIN - TOTAL 3.9 mg/dL (0.2-1.3); CALCIUM 8.5 mg/dL (8.5-10.1); CREATININE - SERUM 0.9 mg/dL (0.6-1.3); PROTEIN - SERUM 5.8 g/dL (6.4-8.2)
[2016-10-16 06:11] LABS: ANION GAP 13.3 mmol/L (8-16); CARBON DIOXIDE 26.8 mmol/L (21.0-32.0); POTASSIUM - SERUM 3.1 mmol/L (3.5-5.1)
[2016-10-16 06:21] LABS: INR 1.73 (0.85-1.17)
--- NOTE | 2016-10-16 07:00 | NUR ---
REPORT RECIEVED, ASSUMED CARE OF PT. PT RESTING IN BED, NONE VERBAL TO VOICE COMMANDS. NO SIGNS OF DISTRESS, IV RUNNING ORDERED, O2 VIA NC @ 2.5L. BED ALARM ON, SIDE RAILS UP X 3, BED IN LOWEST POSITION, CALL LIGHT WITHIN REACH.
[2016-10-16 08:27] VITALS: BP 161/86
[2016-10-16 09:19] LABS: HEPATITIS C ANTIBODY <0.1 (0.0-0.9)
--- NOTE | 2016-10-16 09:36 | NUR ---
ENTERED PT ROOM TO GIVE 0900 MEDICATIONS, PT R ARM IV CAME OUT AND INFUSING ON TO BED, CATHETER INTACT. BEDDING SATURATED. DRSG APPLIED TO IV SITE, BRUISING NOTED. LINENS CHANGED. BED IN LOWEST POSITION.
--- NOTE | 2016-10-16 10:15 | NUR ---
PT RESTING IN ROOM, NO RESPONSE TO VERBAL COMMANDS. NO ACUTE DISTRESS NOTED. BED IN LOWEST POSITION, SIDE RAILS UP X 3.
--- NOTE | 2016-10-16 11:35 | NUR ---
IV RE-SITED TO R FOREARM BY KB VASCULAR NURSE. PATENT. INFUSING FLUIDS ORDRED. DRSG CLEAN, DRY AND INTACT. SWAB CAPS IN PLACE.
[2016-10-16 12:15] LABS: ANA REFLEX - ANTICHROMATIN ABS <0.2 AI (0.0-0.9); ANA REFLEX - CENTROMERE B ABS <0.2 AI (0.0-0.9); ANA REFLEX - DBL STRANDED DNA <1 IU/mL (0-9); ANA REFLEX - DIRECT Positive (Negative); ANA REFLEX - JO-1 AB <0.2 AI (0.0-0.9); ANA REFLEX - RNP ANTIBODIES 2.3 AI (0.0-0.9); ANA REFLEX - SCL-70 <0.2 AI (0.0-0.9); ANA REFLEX - SJOGRENS AB SSA <0.2 AI (0.0-0.9); ANA REFLEX - SJOGRENS AB SSB <0.2 AI (0.0-0.9); ANA REFLEX - SMITH AB <0.2 AI (0.0-0.9)
--- NOTE | 2016-10-16 13:30 | NUR ---
PT RESTING IN ROOM, EYES CLOSED. NO ACUTE DISTRESS NOTED. IV FLUIDS RUNNING ORDERED. BED IN LOWEST POSITION, SIDE RAILS UP X 3, CALL LIGHT WITHIN REACH.
[2016-10-16 13:47] VITALS: BP 176/80
[2016-10-16 16:15] VITALS: BP 178/82
--- NOTE | 2016-10-16 16:38 | NUR ---
PT RESTING IN ROOM, DOES NOT FOLLOW OR RESPOND TO VERBAL COMMANDS. RE-POSITIONED TO L SIDE. NO ACUTE DISTRESS NOTED. BED IN LOWEST POSITION, SIDE RAILS UP X 3.
--- NOTE | 2016-10-16 17:30 | NUR ---
DRSG TO R HIP INCISION SITE CHANGED. INCISION SITE FREE OF REDNESS OR IRRITATION. CLEAN, DRY AND INTACT.
--- NOTE | 2016-10-16 18:48 | NUR ---
PT RESTING IN ROOM, EYES SHUT. NO SIGNS OF ACUTE DISTRESS NOTED. NO RESPONSIVE TO VERBAL COMMANDS. BED LOW, SIDE RAILS UP X 3, CALL LIGHT WITHIN REACH.
--- NOTE | 2016-10-16 19:31 | NUR ---
AWAKE,DOES NOT RESPOND TO VERBAL COMMANDS. O2 @ 2.5 L ON. NO DISTRESS NOTED. DRSG TO RIGHT HIP INTACT WIHTIOUT DRAINAGE NOTED. PEREZ PATENT AND DRAINING STRAW COLORED URINE. IV INFUSING TO RIGHT ARM WIHTOUT REDNESS OR EDEMA NOTED. SCD ON. BED ALARM ON.SIDE RAILS UP X 3.
[2016-10-16 20:00] VITALS: BP 151/67
[2016-10-17] VITALS (7 sets, daily range): BP systolic 166–187; BP diastolic 86–101
--- NOTE | 2016-10-17 01:10 | NUR ---
EYES CLOSED RESP EVEN AND UNALABORED. NO DISTRESS NOTED.
--- NOTE | 2016-10-17 05:03 | NUR ---
NOT RESPONSIVE TO VERBAL COMMANDS. NO DISTRESS NOTED. CL IN REACH. SR UP X 3. BED ALARM ON
[2016-10-17 06:34] LABS: BASOPHILS 0.2 % (0-2); EOSINOPHILS 0.5 % (0-7); HEMATOCRIT 35.8 % (36.0-48.0); HEMOGLOBIN 12.4 g/dL (12-16); IMMATURE GRANULOCYTES 1.8 % (0-5); LYMPHOCYTES 11.4 % (15-50); MCH 32.5 pg (26.0-34.0); MCHC 34.6 g/dL (31.0-37.0); MCV 93.7 fL (80.0-100.0); MEAN PLATELET VOLUME 11.1 fL (7.4-10.4); MONOCYTES 6.6 % (2-11); NEUTROPHILS 79.5 % (40-80); PLATELET COUNT 174 10x3/uL (130-400); RBC 3.82 10x6/uL (4.00-5.40); RDW 16.1 % (11.5-14.5); WBC 18.4 10x3/uL (4.8-10.8)
[2016-10-17 06:41] LABS: INR 1.29 (0.85-1.17)
[2016-10-17 06:53] LABS: ALKALINE PHOSPHATASE 97 U/L (46-116); ALT (SGPT) 456 U/L (10-68); BILIRUBIN - TOTAL 5.27 mg/dL (0.2-1.3); CALCIUM 8.1 mg/dL (8.5-10.1); CARBON DIOXIDE 29.4 mmol/L (21.0-32.0); CHLORIDE - SERUM 100 mmol/L (98-107); CREATININE - SERUM 0.7 mg/dL (0.6-1.3); GLUCOSE 82 mg/dL (74-106); POTASSIUM - SERUM 3.1 mmol/L (3.5-5.1); PROTEIN - SERUM 5.9 g/dL (6.4-8.2); SODIUM 138 mmol/L (136-145); eGFR NON AFRICAN AMERICAN 83 mL/min (90-120)
[2016-10-17 06:54] LABS: CALC OSMOLALITY 278 mosm/kg (275-300); UREA NITROGEN 24 mg/dL (7-18)
--- NOTE | 2016-10-17 07:10 | NUR ---
RECIEVED REPORT, ASSUMED CARE OF PT. IV FLUIDS RUNNING ORDERED, PATENT, DRSG CLEAN, DRY AND INTACT. O2 VIA NASAL CANNULA AT 2.5L. PEREZ CATH IN PLACE. BED ALARM ON. NON RESPONSIVE TO VERBAL COMMANDS. SCD'S ON. NO ACUTE DISTRESS NOTED. BED IN LOWEST POSITION, SIDE RAILS UP X 3, CALL LIGHT IN REACH.
--- NOTE | 2016-10-17 14:53 | NUR ---
ORAL CARE PERFORMED. PT REPOSITIONS IN BED, BACK. PEREZ CATHETER IN PLACE WITH STAT-LOCK. IV FLUIDS RUNNING ORDERED, PATENT. DRSG CLEAN, DRY AND INTACT. BED IN LOWEST POSITION, SIDE RAILS UP X2, CALL LIGHT WITHIN REACH.
--- NOTE | 2016-10-17 15:49 | NUR ---
CONTACTED PHARMACY TO DELIVER CLONIDINE PATCH.
--- NOTE | 2016-10-17 16:26 | NUR ---
CLONIDINE PATCH RECIEVED AND APPLIED ORDERED.
--- NOTE | 2016-10-17 18:22 | NUR ---
R FOREARM IV INFILTRATED, REDNESS NOTED. IV D/C'D CATHETER INTACT. DRSG APPLIED. RE-SITED TO L HAND BY CYN MCKEON. PATENT, IV FLUIDS RUNNING ORDERED.
--- NOTE | 2016-10-17 19:00 | NUR ---
REPORT RECIEVED CARE. PATIENT IN BED WITH IV INTACT. NO COMPLAINTS AT THIS TIME. CALL LIGHT WITHIN REACH.
--- NOTE | 2016-10-17 19:06 | NUR ---
REPORT GIVEN. PT RESTING IN ROOM. EYES CLOSED. IV INFUSING, DRSG CLEAN AND DRY. DRSG TO R HIP CLEAN, DRY AND INTACT. PEREZ IN PLACE, SECURE WITH STAT-LOCK. 2.5 L O2 VIA NASAL CANNULA. NOT RESPONSIVE TO VERBAL COMMANDS. NO FAMILY AT BEDSIDE. BED IN LOWEST POSITION, SIDE RAILS UP X 2, CALL LIGHT WITHIN REACH.
--- NOTE | 2016-10-17 20:00 | NUR ---
ASSESSMENT COMPLETE, VS STABLE. IV INTACT. PATIENT DRESSING ON BUTTOCKS CHANGED. SKIN TEAR TO BUTTOCKS NOTED. BED ALARM ON. CALL LIGHT WITHIN REACH.
[2016-10-17 22:07] LABS: HSV 1 DNA (PCR) Negative (Negative); HSV 2 DNA (PCR) Negative (Negative)
--- NOTE | 2016-10-17 22:30 | NUR ---
PATIENT IN BED WITH IV INTACT. REPOSITIONED AT THIS TIME. CALL LIGHT WITHIN REACH.
--- NOTE | 2016-10-18 00:49 | NUR ---
PATIENT REPOSITIONED BY SUPPLY SERVICE WORKER.
[2016-10-18 04:00] VITALS: BP 155/79
[2016-10-18 06:26] LABS: BASOPHILS 0.1 % (0-2); EOSINOPHILS 0.8 % (0-7); HEMOGLOBIN 12.7 g/dL (12-16); IMMATURE GRANULOCYTES 1.3 % (0-5); LYMPHOCYTES 8.1 % (15-50); MCH 31.8 pg (26.0-34.0); MCHC 34.3 g/dL (31.0-37.0); MCV 92.5 fL (80.0-100.0); MEAN PLATELET VOLUME 10.7 fL (7.4-10.4); MONOCYTES 5.9 % (2-11); NEUTROPHILS 83.8 % (40-80); PLATELET COUNT 161 10x3/uL (130-400); RDW 15.9 % (11.5-14.5); WBC 16.3 10x3/uL (4.8-10.8)
[2016-10-18 06:37] LABS: ALBUMIN 2.8 g/dL (3.4-5.0); ALKALINE PHOSPHATASE 102 U/L (46-116); ALT (SGPT) 427 U/L (10-68); AMYLASE - SERUM 192 U/L (25-115); BILIRUBIN - DIRECT 3.49 mg/dL (0.00-0.30); BILIRUBIN - TOTAL 5.75 mg/dL (0.2-1.3); CALC OSMOLALITY 273 mosm/kg (275-300); CALCIUM 7.9 mg/dL (8.5-10.1); CARBON DIOXIDE 30.8 mmol/L (21.0-32.0); CHLORIDE - SERUM 98 mmol/L (98-107); CREATININE - SERUM 0.7 mg/dL (0.6-1.3); GLUCOSE 91 mg/dL (74-106); LIPASE 877 U/L (73-393); POTASSIUM - SERUM 3.3 mmol/L (3.5-5.1); PROTEIN - SERUM 5.9 g/dL (6.4-8.2); SODIUM 136 mmol/L (136-145); UREA NITROGEN 18 mg/dL (7-18); eGFR NON AFRICAN AMERICAN 83 mL/min (90-120)
[2016-10-18 06:52] LABS: INR 1.16 (0.85-1.17); PROTIME 14.7 SECONDS (11.6-15.0)
--- NOTE | 2016-10-18 07:10 | NUR ---
REPORT RECIEVED, ASSUMED CARE OF PT. RESTING WITH EYES SHUT. NO ACUTE DISTRESS NOTED. NON RESPONSIVE TO VERBAL COMMANDS. L HAND IV INTACT, INFUSING ORDERED. 2.5 L O2 VIA NASAL CANNULA IN PLACE. PEREZ PATENT, SECURED WITH STAT-LOCK. TELEMETRY IN PLACE. BED IN LOWEST POSITION, SIDE RAILS UP X 2, CALL LIGHT WITHIN REACH.
--- NOTE | 2016-10-18 07:35 | NUR ---
PATIENT IN BED WITH NO COMPLAINTS AT THIS TIME. SITTING UP EATING GRAM CRACKERS AND OJ. GLUCOSE 59. IV INTACT. CALL LIGHT WITHIN REACH.
--- NOTE | 2016-10-18 08:01 | NUR ---
SPOKE WITH ABIGAIL VIGIL NURSE. STATED SHE DID NOT GIVE ORAL POTASSIUM REPLACEMENT. WILL START IV ORDERED FOR ELECTROLYTE PROTOCOL.
--- NOTE | 2016-10-18 09:29 | NUR ---
ORAL CARE PERFORMED. PEREZ CARE PERFORMED BY ALFREDO RASCON. PT REPOSITIONED IN BED. NO ACUTE DISTRESS NOTED.
[2016-10-18 10:07] VITALS: BP 154/91
[2016-10-18 11:08] LABS: MITOCHONDRIAL ANTIBODY 5.9 Units (0.0-20.0); SMOOTH MUSCLE ABS (ACTIN) 43 Units (0-19)
--- NOTE | 2016-10-18 11:48 | NUR ---
PT SLEEPING. NO ACUTE DISTRESS NOTED. BED IN LOWEST POSITION, SIDE RAILS UP X 2, CALL LIGHT WITHIN REACH.
[2016-10-18 12:27] VITALS: BP 165/91
--- NOTE | 2016-10-18 13:03 | NUR ---
OFF UNIT VIA BED FOR TESTING.
--- NOTE | 2016-10-18 15:35 | NUR ---
PT RETURNED TO FLOOR FROM [place] SCAN. IV FLUIDS RUNNING ORDERED. NO ACUTE DISTRESS NOTED. BED IN LOWEST POSITION, SIDE RAILS UP X 2, CALL LIGHT WITHIN REACH.
--- NOTE | 2016-10-18 18:53 | NUR ---
PT SLEEPING, EYES CLOSED. NO ACUTE DISTRESS NOTED. CATHETER PATENT, SECURED WITH STAT-LOCK. 2.5 L O2 VIA NASAL CANNULA. IV PATENT, DRSG CLEAN, DRY AND INTACT, FLUIDS RUNNING ORDERED. BED ALARM ON. BED IN LOWEST POSITION, SIDE RAILS UP X 2, CALL LIGHT WITHIN REACH.
--- NOTE | 2016-10-18 19:00 | NUR ---
REPORT RECIEVED ASSUMED CARE. PATIENT IN BED WITH IV INTACT. NO COMPLAINTS OR SIGNS OF DISTRESS. CALL LIGHT WITHIN REACH. BA ON.
--- NOTE | 2016-10-18 19:45 | NUR ---
ASSESSMENT COMPLETE, VS STABLE. PATIENT IN BED WITH EYES CLOSED. NO SIGNS OF DISTRESS. DRESSING TO BUTTOCKS CDI. SCDS OFF. IV INTACT. CALL LIGHT WITHIN REACH.
[2016-10-18 20:00] VITALS: BP 180/89
--- NOTE | 2016-10-18 23:05 | NUR ---
PATIENT IN BED WITH EYES CLOSED RESTING QUIETLY AT THIS TIME. IV INTACT. CALL LIGHT WITHIN REACH.
[2016-10-19] VITALS: BP 175/80
--- NOTE | 2016-10-19 | NUR ---
PATIENT IN BED EYES CLOSED RESTING QUIETLY AT THIS TIME. IV INTACT. CALL LIGHT WITHIN REACH.
--- NOTE | 2016-10-19 01:47 | NUR ---
PATIENT IN BED EYES CLOSED RESTING QUIETLY. IV INTACT. NO COMPLAINTS. CALL LIGHT WITHIN REACH.
[2016-10-19 04:00] VITALS: BP 168/80
--- NOTE | 2016-10-19 04:25 | NUR ---
PATIENT IN BED WITH EYES CLOSED RESTING QUIETLY. IV INTACT. NO COMPLAINTS OR SIGNS OF DISTRESS. CALL LIGHT WITHIN REACH.
[2016-10-19 04:33] LABS: BASOPHILS 0.1 % (0-2); EOSINOPHILS 0.6 % (0-7); HEMATOCRIT 38.9 % (36.0-48.0); HEMOGLOBIN 13.5 g/dL (12-16); IMMATURE GRANULOCYTES 0.7 % (0-5); LYMPHOCYTES 5.6 % (15-50); MCH 32.1 pg (26.0-34.0); MCHC 34.7 g/dL (31.0-37.0); MCV 92.6 fL (80.0-100.0); MEAN PLATELET VOLUME 11.2 fL (7.4-10.4); MONOCYTES 4.1 % (2-11); NEUTROPHILS 88.9 % (40-80); PLATELET COUNT 182 10x3/uL (130-400); RDW 16.6 % (11.5-14.5); WBC 19.2 10x3/uL (4.8-10.8)
[2016-10-19 04:47] LABS: INR 1.12 (0.85-1.17); PROTIME 14.3 SECONDS (11.6-15.0)
[2016-10-19 04:52] LABS: ALBUMIN 2.9 g/dL (3.4-5.0); ALKALINE PHOSPHATASE 117 U/L (46-116); ALT (SGPT) 400 U/L (10-68); BILIRUBIN - TOTAL 7.47 mg/dL (0.2-1.3); CALC OSMOLALITY 270 mosm/kg (275-300); CALCIUM 8.2 mg/dL (8.5-10.1); CARBON DIOXIDE 28.8 mmol/L (21.0-32.0); CHLORIDE - SERUM 95 mmol/L (98-107); CREATININE - SERUM 0.7 mg/dL (0.6-1.3); GLUCOSE 85 mg/dL (74-106); POTASSIUM - SERUM 3.5 mmol/L (3.5-5.1); PRE-ALBUMIN 11.6 mg/dL (18.0-35.7); PROTEIN - SERUM 6.7 g/dL (6.4-8.2); SODIUM 135 mmol/L (136-145); UREA NITROGEN 18 mg/dL (7-18); eGFR NON AFRICAN AMERICAN 83 mL/min (90-120)
--- NOTE | 2016-10-19 05:55 | NUR ---
ORAL CARE DONE BY LABEL STAMPER
--- NOTE | 2016-10-19 06:48 | NUR ---
PATIENT IN BED WITH EYES CLOSED RESTING QUIETLY AT THIS TIME. IV INTACT. NO COMPLAINTS. CALL LIGHT WITHIN REACH.
--- NOTE | 2016-10-19 07:30 | NUR ---
REPORT RECIEVED AND CARE OF PATIENT TRANSFERED TO THIS NURSE.
[2016-10-19 08:33] VITALS: BP 166/64
--- NOTE | 2016-10-19 10:14 | NUR ---
PATIENT ALERT IN MID PEREZ POSITION. NO SIGNS OF DISTRESS NOTED. PRIMARY NURSE SAVANNA GUERRA PRESENT AT BEDSIDE. SIDE RAILS UP X2. BED IN LOW POSITION. CALL LIGHT IN REACH.
--- NOTE | 2016-10-19 10:18 | NUR ---
PT REFUSED ALL PO MEDS REFUSED TO OPEN MOUTH AND REFUSED TO HAVE WATER ATTEMPTED TO FEED BREAKFAST PT REFUSED.
--- NOTE | 2016-10-19 11:00 | NUR ---
PATIENT IN LOW PEREZ POSITION RESTING WITH EYES CLOSED. RESPIRATIONS EVEN AND UNLABORED. SIDE RAILS UP X2. BED IN LOW POSITION. CALL LIGHT IN REACH.
--- NOTE | 2016-10-19 11:08 | NUR ---
PT LETHARGIC IN BED REFUSES TO EAT OR DRINK ANYTHING HARD TO AROUSE AND THEN QUICKLY FALLS BACK TO SLEEP. SCLERA IS JAUNDICED.
[2016-10-19 11:46] LABS: AMYLASE - SERUM 187 U/L (25-115); LIPASE 862 U/L (73-393)
[2016-10-19 12:17] VITALS: BP 158/66
--- NOTE | 2016-10-19 14:44 | NUR ---
PT FIDITING AND PULLED OUT PIV WILL RESITE AND DOCUMENT
--- NOTE | 2016-10-19 15:56 | NUR ---
IV RESITED TO R FOREARM. X1 ATTEMTP WITH 20GUAGE IV. SALINE LOCKED AND TAPED SECURELY. BED LOW, CALL LIGHT IN REACH, DENIES NEEDS. CPOC.
[2016-10-19 16:42] VITALS: BP 170/81
[2016-10-19 20:00] VITALS: BP 143/73
--- NOTE | 2016-10-19 22:06 | NUR ---
REC'D LYING IN BED. ALERT AND ORIENTED X2. DENIED PAIN AT THIS TIME. DENIED FURTHER NEEDS AT THIS TIME. INSTRUCTED TO CALL IF NEEDED ANYTHING. VERBALIZED UNDERSTANDING. WILL ADMIN PM/AM MEDS PRESCRIBED. NO DISTRESS NOTED. BED LOW, LOCKED, CALL LIGHT IN REACH, ALARM ON.
[2016-10-20] VITALS (10 sets, daily range): BP systolic 133–160; BP diastolic 70–102
--- NOTE | 2016-10-20 02:00 | NUR ---
PATIENT RESTING WITH EYES CLOSED AND NO VISIBLE SIGNS OF DISTRESS. BED IN LOWEST POSITION AND CALL LIGHT WITHIN REACH.
[2016-10-20 06:22] LABS: INR 1.15 (0.85-1.17); PROTIME 14.6 SECONDS (11.6-15.0)
[2016-10-20 06:35] LABS: HEMATOCRIT 38.1 % (36.0-48.0); HEMOGLOBIN 13.2 g/dL (12-16); MCH 32.2 pg (26.0-34.0); MCHC 34.6 g/dL (31.0-37.0); MCV 92.9 fL (80.0-100.0); MEAN PLATELET VOLUME 11.9 fL (7.4-10.4); PLATELET COUNT 170 10x3/uL (130-400); RDW 17.3 % (11.5-14.5); WBC 20.4 10x3/uL (4.8-10.8)
[2016-10-20 06:45] LABS: ALBUMIN 2.6 g/dL (3.4-5.0); ALKALINE PHOSPHATASE 116 U/L (46-116); AMYLASE - SERUM 151 U/L (25-115); CALCIUM 8.4 mg/dL (8.5-10.1); CARBON DIOXIDE 24.3 mmol/L (21.0-32.0); CHLORIDE - SERUM 100 mmol/L (98-107); CREATININE - SERUM 0.6 mg/dL (0.6-1.3); GLUCOSE 87 mg/dL (74-106); LIPASE 671 U/L (73-393); POTASSIUM - SERUM 3.3 mmol/L (3.5-5.1); PROTEIN - SERUM 5.9 g/dL (6.4-8.2); SODIUM 137 mmol/L (136-145); eGFR NON AFRICAN AMERICAN > 90 mL/min (90-120)
[2016-10-20 06:47] LABS: ALT (SGPT) 280 U/L (10-68); CALC OSMOLALITY 277 mosm/kg (275-300); UREA NITROGEN 27 mg/dL (7-18)
[2016-10-20 06:51] LABS: LYMPHOCYTES 5 % (15-50); MONOCYTES 3 % (2-11); NEUTROPHILS 92 % (40-80); PLATELET ESTIMATE NORMAL
--- NOTE | 2016-10-20 07:00 | NUR ---
PT SLEEPING. OPENS EYES TO VOICE BUT DOES NOT ANSWER BACK. WEARING GLASSES. EYES HAVE YELLOW DRAINAGE AND ARE JAUNDICE. PT LAYING ON LEFT SIDE. PEREZ SECURED TO RIGHT LEG WITH CONCENTRATED URINE NOTED. RIGHT FOREARM PERIPHERAL IV WITH NS INFUSING AT 30ML/HR. DRESSING ON RIGHT SIDE. BRUISING NOTED ON BOTH ARMS. RADIAL PULSES PALPABLE. PEDAL PULSES WEAK BILATERALY. SKIN ON LOWER EXTREMITIES IS COOL TO TOUCH. ON TELEMETRY WITH HR OF 101 UNCONTROLLED A-FIB. BED ALARM SET. SIDE RAILS UP X 3. BED LOW POSITION. WILL CONTINUE TO MONITOR.
--- NOTE | 2016-10-20 08:37 | NUR ---
SPOKE WITH JEANA BURROUGHS TO GET CONSENT FOR ANESTESIA FOR LIVER BIOPSY PROCEDURE.
--- NOTE | 2016-10-20 10:42 | NUR ---
PT NOT IN ROOM. HAVING LIVER BIOPSY PERFORMED.
--- NOTE | 2016-10-20 11:55 | NUR ---
PT BACK IN ROOM. SLEEPING. WAS GIVEN PROPOFOL DURING LIVER BIOPSY PROCEDURE. BP 149/89 HR 89. BED ALARM RECONNECTED. IV FLUIDS RESTARTED. SIDE RAILS UP X 2. WILL CONTINUE TO MONITOR.
[2016-10-20 12:15] LABS: IMMUNOGLOBULIN A 235 mg/dL (64-422); IMMUNOGLOBULIN G 887 mg/dL (700-1600); IMMUNOGLOBULIN M 265 mg/dL (26-217)
--- NOTE | 2016-10-20 13:51 | NUR ---
PT CONFUSED. KEEPS SAYING THAT "HE'S LATE" REORIENTED HER BUT SHE IS STILL VERY CONFUSED. WILL CONTINUE TO MONITOR.
--- NOTE | 2016-10-20 14:40 | NUR ---
PT ASKING FOR HER SON. STILL CONFUSED ABOUT WHERE SHE IS AT. SIPPING ON SOME WATER AT THIS TIME. WILL CONTINUE TO MONITOR.
--- NOTE | 2016-10-20 15:20 | NUR ---
NUTRITION MONITORING & EVAL CHART REVIEWED. PT WITH REG SOFT DIET, CONTINUES WITH POOR PO INTAKE. 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 RD FOLLOWING
[2016-10-21] VITALS: BP 157/89
--- NOTE | 2016-10-21 00:30 | NUR ---
PATIENT IN BED AND APPEARS TO BE ANXIOUS. BED IN LOWEST POSITION, CALL LIGHT WITHIN REACH, AND BED ALARM ON. ENCOURAGED THE PATIENT TO CALL IF SHE HAS NEEDS.
[2016-10-21 04:00] VITALS: BP 143/85
[2016-10-21 06:36] LABS: BASOPHILS 0.1 % (0-2); EOSINOPHILS 1.1 % (0-7); HEMATOCRIT 40.4 % (36.0-48.0); HEMOGLOBIN 13.8 g/dL (12-16); IMMATURE GRANULOCYTES 0.7 % (0-5); LYMPHOCYTES 4.6 % (15-50); MCH 32.3 pg (26.0-34.0); MCHC 34.2 g/dL (31.0-37.0); MCV 94.6 fL (80.0-100.0); MEAN PLATELET VOLUME 11.2 fL (7.4-10.4); MONOCYTES 6.2 % (2-11); NEUTROPHILS 87.3 % (40-80); PLATELET COUNT 169 10x3/uL (130-400); RBC 4.27 10x6/uL (4.00-5.40); RDW 18.1 % (11.5-14.5); WBC 20.7 10x3/uL (4.8-10.8)
[2016-10-21 07:01] LABS: INR 1.07 (0.85-1.17); PROTIME 13.7 SECONDS (11.6-15.0)
[2016-10-21 07:13] LABS: ALBUMIN 2.7 g/dL (3.4-5.0); ALKALINE PHOSPHATASE 138 U/L (46-116); ALT (SGPT) 231 U/L (10-68); AMYLASE - SERUM 140 U/L (25-115); BILIRUBIN - TOTAL 6.13 mg/dL (0.2-1.3); CALC OSMOLALITY 269 mosm/kg (275-300); CALCIUM 8.2 mg/dL (8.5-10.1); CARBON DIOXIDE 25.3 mmol/L (21.0-32.0); CHLORIDE - SERUM 101 mmol/L (98-107); CREATININE - SERUM 0.6 mg/dL (0.6-1.3); GLUCOSE 92 mg/dL (74-106); LIPASE 666 U/L (73-393); PROTEIN - SERUM 6.5 g/dL (6.4-8.2); SODIUM 133 mmol/L (136-145); UREA NITROGEN 25 mg/dL (7-18); eGFR NON AFRICAN AMERICAN > 90 mL/min (90-120)
[2016-10-21 07:24] LABS: POTASSIUM - SERUM 4.1 mmol/L (3.5-5.1)
[2016-10-21 08:53] VITALS: BP 148/88
--- NOTE | 2016-10-21 09:54 | NUR ---
PT AWAKE AND ABLE TO FOLLOW COMMANDS. AM MEDS GIVEN WITH NO COMPLICATION. NASTATIN POWDER APPLIED TO GROIN.
--- NOTE | 2016-10-21 12:42 | NUR ---
NOTIFIED DR. NEWBY ABOUT HR UP IN S EARLIER TODAY. HR OF 92 AT THIS TIME. ORDERED DIGOXIN 0.25MG IV Q 4HRS X 3. AND DIGOXIN 0.125MG PO ONCE DAILY.
--- NOTE | 2016-10-21 14:41 | NUR ---
SPOKE WITH SON JEANA BURROUGHS AND GAVE UPDATE.
[2016-10-21 16:35] VITALS: BP 165/69
--- NOTE | 2016-10-21 16:50 | NUR ---
PATIENT'S LEGS HANGING OFF BED. PT PULLED UP IN BED AND REPOSITIONED. SIDE RAILS UP X 3. PT STILL CONFUSED. SHE KEEPS ASKING TO GO TO LIVING ROOM. TRIED TO REORIENT BUT PT STILL INSISTED ON GOING TO LIVING ROOM.
--- NOTE | 2016-10-21 19:03 | NUR ---
PT IS LYING IN BED ON RT SIDE, LEGS ARE OFF BED, PT IS CONFUSED AND VERBALLY ABUSIVE. ABLE TO GET PT TO TAKE MEDS REFUSED TO GET BACK IN BED. HAD HEMATOLOGY NURSE ASSIST GET PT BACK. 3 SIDE RAILS UP, BED IN LOW POSITION CALL LIGHT IN REACH
[2016-10-21 20:00] VITALS: BP 120/80
--- NOTE | 2016-10-22 02:00 | NUR ---
PT IN BED ATTEMPTING TO CRAWL OUT OF BED. PT IS CONFUSED. PT NOT ABLE TO BE REORIENTED. FALL PRECAUTIONS ALL IN PLACE. SIDE RAILS X 2. BED LOW. CALL LIGHT IN REACH.
[2016-10-22 04:00] VITALS: BP 150/61
[2016-10-22 05:38] LABS: BASOPHILS 0.1 % (0-2); EOSINOPHILS 1.5 % (0-7); HEMATOCRIT 36.2 % (36.0-48.0); HEMOGLOBIN 12.3 g/dL (12-16); IMMATURE GRANULOCYTES 0.4 % (0-5); LYMPHOCYTES 5.4 % (15-50); MCH 31.9 pg (26.0-34.0); MEAN PLATELET VOLUME 12.3 fL (7.4-10.4); MONOCYTES 5.6 % (2-11); PLATELET COUNT 189 10x3/uL (130-400); RBC 3.85 10x6/uL (4.00-5.40); RDW 17.8 % (11.5-14.5); WBC 17.1 10x3/uL (4.8-10.8)
[2016-10-22 05:53] LABS: INR 1.2 (0.85-1.17); PROTIME 15.1 SECONDS (11.6-15.0)
[2016-10-22 06:25] LABS: ALBUMIN 2.5 g/dL (3.4-5.0); ALKALINE PHOSPHATASE 141 U/L (46-116); ALT (SGPT) 194 U/L (10-68); AMYLASE - SERUM 128 U/L (25-115); BILIRUBIN - TOTAL 5.01 mg/dL (0.2-1.3); CALC OSMOLALITY 270 mosm/kg (275-300); CALCIUM 8.3 mg/dL (8.5-10.1); CARBON DIOXIDE 24.6 mmol/L (21.0-32.0); CHLORIDE - SERUM 100 mmol/L (98-107); CREATININE - SERUM 0.7 mg/dL (0.6-1.3); GLUCOSE 89 mg/dL (74-106); LIPASE 661 U/L (73-393); POTASSIUM - SERUM 3.6 mmol/L (3.5-5.1); PROTEIN - SERUM 6.1 g/dL (6.4-8.2); SODIUM 134 mmol/L (136-145); UREA NITROGEN 23 mg/dL (7-18); eGFR NON AFRICAN AMERICAN 83 mL/min (90-120)
--- NOTE | 2016-10-22 07:00 | NUR ---
REPORT RECIEVED ASSUMED CARE. PATIEN TIN BED WITH IV INTACT. NO COMPLAINTS OR SIGNS OF DISTRESS. CALL LIGHT WITHIN REACH.
[2016-10-22 08:55] VITALS: BP 135/75
[2016-10-22 12:23] VITALS: BP 146/72
[2016-10-22 16:49] VITALS: BP 173/76
--- NOTE | 2016-10-22 17:50 | NUR ---
PATIENT PULLED IV OUT. CATH TIP INTACT.
--- NOTE | 2016-10-22 18:00 | NUR ---
PATIENT SPOKE WITH SON ON THE PHONE PER PATIENT REQUEST. CALL LIGHT WITHIN REACH.
--- NOTE | 2016-10-22 19:16 | NUR ---
PT IS LYING IN BED ON LEFT SIDE, HAD PULLED OUT IV DURING DAY SHIFT. WENT TO ASSESS VEINS AND PT STATED NO AND KEPT PULLING AWAYWILL WAIT AND TRY AGAIN IN A VOUPLE OF HOURS. BED IN LOW POSITION, CALL LIGHT IN REACH
[2016-10-22 20:00] VITALS: BP 166/72
[2016-10-23] VITALS: BP 146/79
--- NOTE | 2016-10-23 01:09 | NUR ---
RESTING,WITHOUT DISTRESS.DOOR OPEN TO MONITOR
[2016-10-23 04:00] VITALS: BP 138/57
--- NOTE | 2016-10-23 07:00 | NUR ---
REPORT RECIEVED ASSUMED CARE. PATIENT IN BED WITH IV INTACT. NO COMPLAINTS AT THIS TIME. CALL LIGHT WITHIN REACH.
--- NOTE | 2016-10-23 09:45 | NUR ---
OK TO LEAVE IV OUT PER AMBER DENNY APN DUE TO PATIENT REFUSING. NO COMPLAINTS FROM PATIENT AT THIS TIME. CALL LIGHT WITHIN REACH.
[2016-10-23 10:11] LABS: INR 1.17 (0.85-1.17); PROTIME 14.8 SECONDS (11.6-15.0)
[2016-10-23 10:20] LABS: ALBUMIN 2.6 g/dL (3.4-5.0); BILIRUBIN - TOTAL 3.97 mg/dL (0.2-1.3); CALCIUM 8.2 mg/dL (8.5-10.1); CARBON DIOXIDE 26.8 mmol/L (21.0-32.0); CREATININE - SERUM 0.8 mg/dL (0.6-1.3); POTASSIUM - SERUM 3.8 mmol/L (3.5-5.1); PROTEIN - SERUM 5.7 g/dL (6.4-8.2)
[2016-10-23 10:59] LABS: BASOPHILS 0.1 % (0-2); EOSINOPHILS 1.6 % (0-7); HEMOGLOBIN 12.8 g/dL (12-16); IMMATURE GRANULOCYTES 0.5 % (0-5); LYMPHOCYTES 6.9 % (15-50); MCH 32.1 pg (26.0-34.0); MCHC 34.6 g/dL (31.0-37.0); MCV 92.7 fL (80.0-100.0); MEAN PLATELET VOLUME 12.6 fL (7.4-10.4); MONOCYTES 7.2 % (2-11); NEUTROPHILS 83.7 % (40-80); PLATELET COUNT 197 10x3/uL (130-400); RBC 3.99 10x6/uL (4.00-5.40); RDW 17.4 % (11.5-14.5)
--- NOTE | 2016-10-23 14:12 | NUR ---
Nutrition Follow Up: Pt is eating 0% most meals on a regular diet. +BM 10/22/16. No new wt to assess. Meds noted. Labs reviewed. Rec continue current diet. Rec consider an appetite stimulant. Will send Ensure with meals. Will continue to provide selective menus and honor food preferences. RD following.
--- NOTE | 2016-10-23 14:17 | NUR ---
CM TELEPHONED PATIENT 'SON, JEANA, TO VERIFY GOAL AT DISCHARGE AND CONFIRM [facility] IS THE PREFERRED PROVIDER. SPOKE WITH PATIENT' SON. HE STATES HIS GOAL IS TO HAVE HIS MOTHER RETURN TO PENDING SALE TO [facility] AFTER REHAB AT [facility]. HE IS NOT CONSIDERING HOSPICE CARE. HE STATED HE DID NOT KNOW IF SHE WOULD HAVE A FEW DAYS OF REHAB AT [facility] OR GO TO [facility]. CM EXPLAINED SHE COULD NOT TOLERATE 3 HRS OF THERAPY IN ACUTE REHAB. HE STATED HE UNDERSTOOD. HE WANTED TO KNOW WHEN THE PATIENT WOULD TRANSFER, ADVISED CM WOULD AWAIT [facility]'S REVIEW OF CLINICAL AND DECISION REGARDING ACCEPTANCE DATE. ADVISED CM IS FAXING CLINICAL TODAY AND POSSIBLE D/C TODAY. FAXED CLINICAL FOR REVIEW TO [facility]. TC TO [facility]. SHE WAS NOT AVAILABLE. STAFF WILL GIVE HER THE PACKET.
[2016-10-23 16:35] VITALS: BP 157/75
--- NOTE | 2016-10-23 18:31 | NUR ---
OT NOTE: PT COMPLETED GROOMING TASK WITH SET UP AND VERBAL CUES. PT COMPLETED BUE AROM EXS FOR INCREASED AX TOLERANCE . PT COMPLETED BED MOB FOR DECREASED RISK OF SKIN BREAKDOWN. THANK YOU, FELICITAS SEALS
--- NOTE | 2016-10-23 18:45 | NUR ---
PATIENT IN BED WITH IV INTACT. NO COMPLAINTS AT THIS TIME. CALL LIGHT WITHIN REACH.
[2016-10-23 20:00] VITALS: BP 115/60; BP 131/76
[2016-10-23 23:52] VITALS: BP 166/68
[2016-10-24 03:58] VITALS: BP 155/56
--- NOTE | 2016-10-24 07:54 | NUR ---
CONFUSED, TRIED TO REDIRECT, BED LOWEST POSITION, MARCOS MAT ON, CALL LIGHT IN REACH, SIDERAILS UP X3, WILL CONTINUE TO MONITOR
[2016-10-24 07:57] LABS: BASOPHILS 0.1 % (0-2); EOSINOPHILS 2.1 % (0-7); HEMATOCRIT 36.9 % (36.0-48.0); HEMOGLOBIN 12.6 g/dL (12-16); IMMATURE GRANULOCYTES 0.5 % (0-5); LYMPHOCYTES 9.1 % (15-50); MCH 32.1 pg (26.0-34.0); MCHC 34.1 g/dL (31.0-37.0); MCV 93.9 fL (80.0-100.0); MEAN PLATELET VOLUME 12.6 fL (7.4-10.4); MONOCYTES 8.6 % (2-11); NEUTROPHILS 79.6 % (40-80); PLATELET COUNT 199 10x3/uL (130-400); RBC 3.93 10x6/uL (4.00-5.40); RDW 17.9 % (11.5-14.5); WBC 12.6 10x3/uL (4.8-10.8)
[2016-10-24 08:06] LABS: INR 1.08 (0.85-1.17); PROTIME 13.8 SECONDS (11.6-15.0)
[2016-10-24 08:22] LABS: ALBUMIN 2.3 g/dL (3.4-5.0); ANION GAP 11.1 mmol/L (8-16); BILIRUBIN - TOTAL 3.4 mg/dL (0.2-1.3); CALCIUM 8.1 mg/dL (8.5-10.1); CARBON DIOXIDE 24.3 mmol/L (21.0-32.0); CREATININE - SERUM 0.8 mg/dL (0.6-1.3); POTASSIUM - SERUM 4.4 mmol/L (3.5-5.1); PROTEIN - SERUM 5.9 g/dL (6.4-8.2)
[2016-10-24 09:02] VITALS: BP 150/86
--- NOTE | 2016-10-24 10:30 | NUR ---
PATIENT SITTING UP IN CHAIR AT BEDSIDE. NO SIGNS OF DISTRESS NOTED. CALL LIGHT IN REACH.
[2016-10-24 12:44] VITALS: BP 120/57
[2016-10-24 15:36] VITALS: BP 125/74
[2016-10-24 19:00] VITALS: BP 127/65
[2016-10-25] VITALS: BP 154/78
[2016-10-25 04:00] VITALS: BP 141/59
[2016-10-25 07:36] LABS: BASOPHILS 0.1 % (0-2); EOSINOPHILS 2.2 % (0-7); HEMATOCRIT 35.8 % (36.0-48.0); HEMOGLOBIN 12.2 g/dL (12-16); IMMATURE GRANULOCYTES 0.4 % (0-5); LYMPHOCYTES 12.6 % (15-50); MCH 32.2 pg (26.0-34.0); MCHC 34.1 g/dL (31.0-37.0); MCV 94.5 fL (80.0-100.0); MEAN PLATELET VOLUME 11.7 fL (7.4-10.4); MONOCYTES 6.6 % (2-11); NEUTROPHILS 78.1 % (40-80); PLATELET COUNT 220 10x3/uL (130-400); RBC 3.79 10x6/uL (4.00-5.40); RDW 18.2 % (11.5-14.5); WBC 10.7 10x3/uL (4.8-10.8)
--- NOTE | 2016-10-25 07:40 | NUR ---
SLEEPING, NO DISTRESS NOTED, BREATHING EVEN UNLABORED, CALL LIGHT IN REACH, WILL CONITNUE TO MONITOR
[2016-10-25 07:49] LABS: INR 1.07 (0.85-1.17); PROTIME 13.8 SECONDS (11.6-15.0)
--- NOTE | 2016-10-25 07:55 | NUR ---
PATIENT IN MID PEREZ POSITION RESTING WITH EYES CLOSED. RESPIRATIONS EVEN AND UNLABORED. SIDE RAILS UP X2. BED IN LOW POSITION. CALL LIGHT IN REACH.
[2016-10-25 07:57] LABS: ALBUMIN 2.6 g/dL (3.4-5.0); ANION GAP 13.2 mmol/L (8-16); BILIRUBIN - TOTAL 2.68 mg/dL (0.2-1.3); CALCIUM 8.3 mg/dL (8.5-10.1); CARBON DIOXIDE 26.5 mmol/L (21.0-32.0); CREATININE - SERUM 0.9 mg/dL (0.6-1.3); POTASSIUM - SERUM 3.7 mmol/L (3.5-5.1); PROTEIN - SERUM 5.8 g/dL (6.4-8.2)
[2016-10-25 09:41] VITALS: BP 157/83
[2016-10-25 12:33] VITALS: BP 165/72
[2016-10-25 17:38] VITALS: BP 154/68
[2016-10-25 20:00] VITALS: BP 135/53
[2016-10-26 04:00] VITALS: BP 143/71
--- NOTE | 2016-10-26 05:09 | NUR ---
PT CONFUSED. TAKING OFF GOWN. PT ASKING "WHY AM I HERE?" ASKING FOR HER SON JEANA. HELPED PT UP TO BEDSIDE COMMODE. PT VERY UNSTEADY AND WEAK. PEREZ DRAINING ORANGE CONENTRATED URINE. TELEMETRY RUNNING CONTROLLED AFIB. COMPLETE ASSESSMENT PER FLOWSHEET. BED ALARM ON. WILL CONTINUE TO MONITOR.
[2016-10-26 06:32] LABS: BASOPHILS 0.1 % (0-2); EOSINOPHILS 2.7 % (0-7); HEMOGLOBIN 12.1 g/dL (12-16); IMMATURE GRANULOCYTES 0.6 % (0-5); LYMPHOCYTES 11.5 % (15-50); MCH 32.4 pg (26.0-34.0); MCHC 33.6 g/dL (31.0-37.0); MEAN PLATELET VOLUME 11.9 fL (7.4-10.4); MONOCYTES 10.3 % (2-11); NEUTROPHILS 74.8 % (40-80); PLATELET COUNT 208 10x3/uL (130-400); RBC 3.73 10x6/uL (4.00-5.40); RDW 18.6 % (11.5-14.5); WBC 8.8 10x3/uL (4.8-10.8)
[2016-10-26 06:45] LABS: MCV 96.5 fL (80.0-100.0)
[2016-10-26 07:01] LABS: ALBUMIN 2.5 g/dL (3.4-5.0); ANION GAP 9.2 mmol/L (8-16); BILIRUBIN - TOTAL 2.25 mg/dL (0.2-1.3); CALCIUM 8.3 mg/dL (8.5-10.1); CARBON DIOXIDE 28.6 mmol/L (21.0-32.0); CREATININE - SERUM 0.9 mg/dL (0.6-1.3); POTASSIUM - SERUM 3.8 mmol/L (3.5-5.1)
--- NOTE | 2016-10-26 07:35 | NUR ---
SLEEPING, BREATHING EVEN AND UNLABORED, CALL LIGHT IN REACH, NO DISTRESS NOTED, BED LOWEST POSITION, MARCOS ALARM ON, WILL CONTINUE TO MONITOR
[2016-10-26 09:32] VITALS: BP 156/67
[2016-10-26 11:58] VITALS: BP 164/78
--- NOTE | 2016-10-26 12:00 | NUR ---
PT SITTING UP IN BED WITH NO VISABLE SIGNS OF PAIN OR DISCOMFORT AT THIS TIME, BED IN LOW POSITION AND CALL LIGHT WITHIN REACH. WILL CONTINUE TO MONITOR.
[2016-10-26] MEDS ORDERED: LANOXIN125 MCG PO (12:51)
[2016-10-26] MEDS ORDERED: NYSTATIN1 PWD TOPICAL (12:51)
[2016-10-26] MEDS ORDERED: CATAPRES TTS-10.1 MG TRANSDERM (12:51)
[2016-10-26] MEDS ORDERED: ASPIRIN325 MG PO (13:17)
--- NOTE | 2016-10-26 13:21 | NUR ---
REPORT CALLED TO LICHA HUTCHISON LPN AT [facility]
--- NOTE | 2016-10-26 14:58 | NUR ---
OT NOTE: ASSISTED PT FROM CHAIR TO BED WITH MAX ASSIST; BED MOB WITH MAX ASSISST; STATIC SITTING ON EDGE OF BED WITH MIN ASSIST. PT MORE ALERT WITH THERAPIST TODAY, AND WAS ABLE TO REQUEST WHICH CHANNEL SHE WANTED TO WATCH, WHICH IS BETTER THAN LAST WEEK. PT APPARENTLY D/CING TO [facility] TODAY
--- NOTE | 2016-10-26 15:16 | NUR ---
DISCHARGED PER [facility] VIA STRETCHER TO [facility]
--- NOTE | 2016-10-26 15:20 | NUR ---
CM REASSESSMENT NOTE: PATIENT D/C TO [facility] TODAY TO A SKILLED BED BY AMBULANCE.
--- NOTE | 2016-10-27 15:47 | EC ---
PATIENT:ERIK BURROUGHS DATE OF SERVICE: 10/07/16 SEX: F MEDICAL RECORD: [id number] DATE OF : [birth year] LOCATION:[facility] AGE OF PATIENT: 89 ADMISSION DATE: 10/07/16 REFERRING PHYSICIAN: INTERPRETING PHYSICIAN: DELILAH NEWBY MD ECHOCARDIOGRAM REPORT ECHO CHARGES 4 ECHO COMPLETE CLINICAL DIAGNOSIS: A-FIB/AI ECHOCARDIOGRAPHIC MEASUREMENTS (adult normal given) AC root (d.<3.7cm) 3.8 cm LV Septum d (<1.2 cm> 1.2 cm Valve Excursion 1.5 cm LV Septum (systole) 1.7 cm Left Atria (s.<4.0cm> 4.0 cm LVPW d(<1.2cm) 1.2 cm RV (d.<2.3cm) 2.8 cm LVPW (sytole) 1.9 cm LV diastole(<5.6CM) 4.3 cm MV E-F(>70mm/sec) cm LV systole 2.5 cm LVOT Diameter 2.0 cm MV exc.(>10mm) cm Est.ejection fraction (50-75%) % Pericardial Effusion N DOPPLER: LVIT cm/sec A cm/sec E 118.0 cm/sec LA cm/sec RVSP 63.0 mmHg LVOT 141 cm/sec AOP1/2T 401.0m/s Asc. Ao 167 cm/sec RVOT 76.0 cm/sec RA cm/sec PA 61.0 cm/sec AV Gradient Peak 11.2 mmHg AV Mean 4.6 mmHg AV Area 2.5 cm MV Gradient Peak 6.0 mmHg MV Mean 2.7 mmHg MV Area cm COMMENTS: Lab Director: Dereje CISNEROSOE Openstack Developer: Johnson Newby TAPE# PACS DATE OF SERVICE: 10/15/2016 Echocardiographic Report FINDINGS: 1. This is a good quality imagery on the echocardiogram. The patient's overall ejection fraction is 40% to 45%. There is mild left ventricular hypertrophy. Diastology is not able to be calculated because of the patient's apparent dysrhythmia. 2. The left atrium is mildly enlarged. ECHOCARDIOGRAM REPORT [id number] ERIK BURROUGHS 3. The right atrium is mildly enlarged, both of which have normal function. 4. The right ventricle is slightly dilated with normal function. 5. The aortic valve has aortic sclerosis without significant evidence of stenosis and there is trace aortic insufficiency to mild aortic insufficiency. 6. Pulmonic valve is not well visualized and there is mild pulmonic insufficiency. 7. The tricuspid valve is shown to have severe tricuspid regurgitation and the right ventricular systolic pressure is 60-70 mmHg and moderate to severe elevations in pulmonary pressures. 8. The mitral valve has severe mitral regurgitation with proximal flow convergence. No obvious mechanical disruption is seen; however, the mitral valve leaflets are thickened and on one view, there appears to be redundant, at least chordee, in the posterior and lateral papillary muscle segment. 9. The pericardium shows no pericardial effusion. 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 Does not appear to be mechanical in nature at this point and the wall motion of the left ventricle appears to be intact. There is no obvious wall motion deficits. TRANSINT:[id number] Voice Confirmation ID: [id number] DOCUMENT ID: [id number] 10/23/2016 Edited to correct date of service, dm. DELILAH NEWBY MD at 1547 CC: [id number] DICTATION DATE: 10/16/16 1416 TECHNICAL SERVICES CONSULTANT: [id number] DIS IN 10/26/16 [facility] [address] [place] [address]
== END 2016-10-26 15:17 | DRG 469 ==
LOC: D.ER 19:08 → D.MS 21:22
PROVIDERS: Emergency Medicine; Family Medicine; Internal Medicine Cardiovascular Disease; Internal Medicine Gastroenterology; Orthopaedic Surgery; ADMIT Family Medicine
PROC: 0SRR0JZ Replacement of Right Hip Joint, Femoral Surface with Synthetic Substitute, Open Approach (ICD-10-PCS; principal; 2016-10-08 12:00)
PROC: 0T9B70Z Drainage of Bladder with Drainage Device, Via Natural or Artificial Opening (ICD-10-PCS; 2016-10-10)
PROC: 0FB03ZX Excision of Liver, Percutaneous Approach, Diagnostic (ICD-10-PCS; 2016-10-20)
DX: S72.001A Fracture of unspecified part of neck of right femur, initial encounter for closed fracture (principal); G93.40 Encephalopathy, unspecified; K72.00 Acute and subacute hepatic failure without coma; N39.0 Urinary tract infection, site not specified; R18.8 Other ascites; W19.XXXA Unspecified fall, initial encounter; I48.91 Unspecified atrial fibrillation; Z79.02 Long term (current) use of antithrombotics/antiplatelets; M70.21 Olecranon bursitis, right elbow; I10 Essential (primary) hypertension; K21.9 Gastro-esophageal reflux disease without esophagitis; F41.9 Anxiety disorder, unspecified; F32.9 Major depressive disorder, single episode, unspecified; E03.9 Hypothyroidism, unspecified; R41.0 Disorientation, unspecified; B96.20 Unspecified Escherichia coli [E. coli] as the cause of diseases classified elsewhere; R33.9 Retention of urine, unspecified; Z66 Do not resuscitate; G30.9 Alzheimer's disease, unspecified; F02.80 Dementia in other diseases classified elsewhere, unspecified severity, without behavioral disturbance, psychotic disturbance, mood disturbance, and anxiety; D69.6 Thrombocytopenia, unspecified; T36.95XA Adverse effect of unspecified systemic antibiotic, initial encounter

== ENCOUNTER 2016-11-13 08:23 | Inpatient (IN) | payer MEDICARE, OTHER ==
[~2016-11-13] VITALS: Ht 167.6 cm; Wt 63.2 kg
[~2016-11-13 08:23] MED LIST: ACETAMINOPHEN500 M1 PO; ALDACTONE25 MG PO; ASPIRIN325 MG PO; CATAPRES TTS-10.1 MG TRANSDERM; ELIQUIS2.5 MG PO; LANOXIN125 MCG PO; LEVOXYL100 MCG PO; NYSTATIN1 PWD TOPICAL; PROTONIX40 MG PO; PROZAC20 MG PO; TENORMIN50 MG PO; TUMS X-STR300 MG PO; VITAMIN D31000 UNIT PO; XANAX0.25 MG PO; ZANTAC150 MG PO
[2016-11-13 10:33] LABS: BASOPHILS 0.2 % (0-2); EOSINOPHILS 0.3 % (0-7); HEMATOCRIT 39.9 % (36.0-48.0); HEMOGLOBIN 13.3 g/dL (12-16); IMMATURE GRANULOCYTES 0.2 % (0-5); LYMPHOCYTES 6.9 % (15-50); MCHC 33.3 g/dL (31.0-37.0); MEAN PLATELET VOLUME 11.3 fL (7.4-10.4); MONOCYTES 5.8 % (2-11); NEUTROPHILS 86.6 % (40-80); PLATELET COUNT 217 10x3/uL (130-400); RBC 4.03 10x6/uL (4.00-5.40); RDW 17.2 % (11.5-14.5); WBC 12.2 10x3/uL (4.8-10.8)
[2016-11-13 10:42] LABS: ANION GAP 12.5 mmol/L (8-16); APTT 29.9 SECONDS (22.8-39.4); BILIRUBIN - TOTAL 1.19 mg/dL (0.2-1.3); CARBON DIOXIDE 29.7 mmol/L (21.0-32.0); CREATININE - SERUM 0.9 mg/dL (0.6-1.3); INR 0.99 (0.85-1.17); POTASSIUM - SERUM 4.2 mmol/L (3.5-5.1); PROTEIN - SERUM 7.1 g/dL (6.4-8.2); PROTIME 12.9 SECONDS (11.6-15.0)
--- NOTE | 2016-11-13 14:35 | NUR ---
RECEIVED TO FLOOR FROM ER, SENT TO OR AT [id number]
[2016-11-13 17:15] VITALS: BP 132/62
[2016-11-13 17:48] VITALS: BP 132/62
--- NOTE | 2016-11-13 18:13 | NUR ---
AMMONIA LEVEL OF [address] HERNANDEZ AWAITING ORDERS
[2016-11-13 20:00] VITALS: BP 144/69
[2016-11-14] VITALS: BP 129/63
--- NOTE | 2016-11-14 01:37 | NUR ---
ASSESSED AT THE BEGINNING OF THE SHIFT. SHE IS CONFUSED AND HAD PULLED OUT HER PEREZ, PULLED OFF HER TELEMETRY, AND WAS NAKED. WHEN WE TRIED TO COVER HER SHE WOULD TAKE IT BACK OFF. SHE HAS A BED ALARM IN PLACE. FIRST SHE WAS GIVEN A PRN ORDER FOR ATIVAN. THIS DID NOT SEEM TO HELP HER AND SHE WAS MOANING WITH HER HIP WHICH HAS A ORIF FROM TODAY. SHE WAS GIVEN A NORCO ORDERED AND AFTER ABOUT AN HOUR WAS SLEEPING WELL ENOUGH TO GET THE TELEMETRY BACK ON. A LITTLE LATER WE REPLACED HER PEREZ AND THEN SHE WENT BACK TO SLEEP AND IS RESTING QUIET AT THIS TIME. HER BED IS LOW, RAILS UP X'S 3 WITH THE CALL LIGHT AT HAND AND BED ALARM IN PLACE. DRESSING TO HER HIP IS CLEAN DRY AND IN PLACE. AFT
[2016-11-14 04:00] VITALS: BP 121/64
[2016-11-14 07:02] LABS: BASOPHILS 0.4 % (0-2); EOSINOPHILS 2.3 % (0-7); IMMATURE GRANULOCYTES 0.1 % (0-5); LYMPHOCYTES 9.8 % (15-50); MCH 32.7 pg (26.0-34.0); MCHC 33.1 g/dL (31.0-37.0); MCV 98.7 fL (80.0-100.0); MONOCYTES 5.5 % (2-11); NEUTROPHILS 81.9 % (40-80); RDW 17.5 % (11.5-14.5)
[2016-11-14 07:13] LABS: HEMATOCRIT 30.8 % (36.0-48.0); HEMOGLOBIN 10.2 g/dL (12-16); PLATELET COUNT 157 10x3/uL (130-400); RBC 3.12 10x6/uL (4.00-5.40); WBC 8.4 10x3/uL (4.8-10.8)
[2016-11-14 07:26] LABS: ALBUMIN 2.4 g/dL (3.4-5.0); ANION GAP 11.9 mmol/L (8-16); BILIRUBIN - TOTAL 1.4 mg/dL (0.2-1.3); CALCIUM 8.7 mg/dL (8.5-10.1); CARBON DIOXIDE 23.8 mmol/L (21.0-32.0); CREATININE - SERUM 0.8 mg/dL (0.6-1.3); POTASSIUM - SERUM 4.7 mmol/L (3.5-5.1); PROTEIN - SERUM 5.6 g/dL (6.4-8.2)
[2016-11-14 08:00] VITALS: BP 157/67
--- NOTE | 2016-11-14 09:36 | NUR ---
AROUSES TO VERBAL AND TACTILE STIMULATION. NON VERBAL THIS AM. CRIES OUT IN PAIN WITH ANY MOVEMENT. GIVEN ONE HYDROCODONE PO FOR SAME. TOOK AM MEDS IN PUDDING WITH SOME VERBAL CUEING. LUNGS ARE CLEAR BIALTERALLY, NO COUGH NOTED. SKIN IS INTACT WITHOUT REDNESS EXCEPT INCISION TO LEFT HIP WHICH HAS A DRY INTACT DRESSING IN PLACE. IV RIGHT HAND IS PATENT WITHOUT REDNESS AT INSERTION SITE. PEREZ PATENT WITH SLIGHTLY BLOOD TINGED URINE. REFUSED MULTIPLE OFFERS OF FOOD THIS AM. WILL MONITOR.
--- NOTE | 2016-11-14 10:00 | NUR ---
RESTING QUIETLY WITH EYES CLOSED. NO NEEDS NOTED.
--- NOTE | 2016-11-14 12:30 | NUR ---
LUNCH SERVED IN ROOM. REFUSED TO EAT. WOULDN'T EVEN TRY A BITE OF FOOD.
[2016-11-14 12:36] VITALS: BP 120/67
[2016-11-14 13:27] VITALS: Ht 167.6 cm; Wt 63.2 kg
--- NOTE | 2016-11-14 15:03 | NUR ---
RESTING QUIETLY WTIH EYES CLOSED. FAMILY AT BEDSIDE.
[2016-11-14 16:09] VITALS: BP 125/59
--- NOTE | 2016-11-14 17:00 | NUR ---
BENJAMIN REMOVED AT THIS TIME FOR SKIN INSPECTION.
--- NOTE | 2016-11-14 17:54 | NUR ---
Late Entry Patient' son, Joshua, request to speak with the caser up. He had spoken with the social media senior associate, Cassandra, at [facility] about his mother. She had been at [facility] for skilled rehab previously. She progressed very poorly. Was discharged back to [facility] and fell fracturing her other hip within 24 hrs of discharge. He has an appointment to meet with Cassandra at 0930 in the AM. He requested that CM forward clinical information. CM faxed clinical at [phone]. Received confirmation. The plan is for the patient to be admitted to a senior living bed at [facility]. He also request that Loraine at the [facility] be notified on Wednesday AM of the plan for admission to [facility] unit. Joshua Blas- son and [facility]- [phone] [place] to follow to assist.
--- NOTE | 2016-11-14 18:51 | NUR ---
ATE A FEW BITES OF SUPPER WITH ASSIST FROM STAFF. VERY CONFUSED AND AGITATED AT THIS TIME. GIVEN ONE HYDROCODONE PO FOR PAIN TO LEFT HIP. WILL MONITOR.
[2016-11-14 20:00] VITALS: BP 156/87
--- NOTE | 2016-11-14 20:00 | NUR ---
CHANGED PATIENT'S LINENS AND GOWN WITH LOIDA FLORES. PATIENT DENIES OTHER NEEDS AT THIS TIME. BED IN LOWEST POSITION, CALL LIGHT WITHIN REACH, AND BED ALARM ON. ENCOURAGED THE PATIENT TO CALL IF SHE HAS NEEDS.
[2016-11-15] VITALS: BP 141/69
[2016-11-15 04:00] VITALS: BP 167/75
[2016-11-15 06:42] LABS: BASOPHILS 0.2 % (0-2); EOSINOPHILS 1.1 % (0-7); HEMATOCRIT 30.8 % (36.0-48.0); HEMOGLOBIN 10.4 g/dL (12-16); IMMATURE GRANULOCYTES 0.5 % (0-5); LYMPHOCYTES 5.9 % (15-50); MCH 32.9 pg (26.0-34.0); MCHC 33.8 g/dL (31.0-37.0); MCV 97.5 fL (80.0-100.0); MONOCYTES 4.9 % (2-11); NEUTROPHILS 87.4 % (40-80); PLATELET COUNT 171 10x3/uL (130-400); RBC 3.16 10x6/uL (4.00-5.40); RDW 17.1 % (11.5-14.5); WBC 10.5 10x3/uL (4.8-10.8)
[2016-11-15 07:03] LABS: ALBUMIN 2.5 g/dL (3.4-5.0); ANION GAP 12.9 mmol/L (8-16); BILIRUBIN - TOTAL 1.71 mg/dL (0.2-1.3); CALCIUM 8.4 mg/dL (8.5-10.1); CARBON DIOXIDE 22.5 mmol/L (21.0-32.0); CREATININE - SERUM 0.8 mg/dL (0.6-1.3); POTASSIUM - SERUM 4.4 mmol/L (3.5-5.1); PROTEIN - SERUM 6.3 g/dL (6.4-8.2)
--- NOTE | 2016-11-15 07:30 | NUR ---
AROUSES TO VERBAL STIMULATION. ORIENTED TO SELF ONLY. ATTEMPTS TO REORIENT PER STAFF WITHOUT SUCCESS. LUNGS ARE CLEAR BILATERALLY, NO COUGH NOTED. SKIN IS INTACT WITHOUT REDNESS EXCEPT INCISION TO LEFT HIP WHICH HAS A DRY INTACT DRESSING IN PLACE. AND SLIGHT REDNESS TO EVELYNE AREA WHICH IS IMPROVING WITH USE OF NYSTATIN POWDER. IV TO RIGHT HAND IS PATNET WITHOUT REDNESS AT INSERTION SITE. PEREZ PATENT WITH CLEAR YELLOW URINE. NO NEEDS NOTED AT THIS TIME.
[2016-11-15 08:15] VITALS: BP 157/75
--- NOTE | 2016-11-15 08:30 | NUR ---
REFUSED TO EAT ANY OF BREAKFAST. NO NEEDS NOTED.
--- NOTE | 2016-11-15 11:35 | NUR ---
CRY ING OUT AND JERKING AROUND IN BED WITH FACIAL GRIMACES. GIVEN 2MG MORPHINE SLOW IVP. WILL MONITOR. PULLED IV OUT WITH CATHETER INTACT. RESITED TO LEFT WRIST AFTER 3 ATTEMPTS PER STAFF WITH 22G. WILL MONITOR.
--- NOTE | 2016-11-15 12:30 | NUR ---
ATE ONLY A FEW BITES OF LUNCH. CLAMPED MOUTH SHUT AND REFUSED MORE FOOD. WILL TAKE OCCASSIONAL SIPS OF WATER.
[2016-11-15 13:04] VITALS: BP 105/60
--- NOTE | 2016-11-15 14:55 | NUR ---
CRY ING OUT FOR HER MOTHER. GIVEN O.5MG ATIVAN SLOW IVP FOR AGITATION. WILL MONITOR.
[2016-11-15 15:58] VITALS: BP 156/63
--- NOTE | 2016-11-15 16:11 | NUR ---
RESTING QUIETLY WITH EYES CLOSED. NO NEEDS NOTED.
--- NOTE | 2016-11-15 18:17 | NUR ---
REFUSED TO EAT ANY SUPPER. NO CHANGES NOTED. NO NEEDS NOTED.
[2016-11-15 19:00] VITALS: BP 118/62
--- NOTE | 2016-11-15 19:35 | NUR ---
PATIENT RESTING WITH EYES CLOSED AND NO VIBSLE SIGNS OF DISTRESS. BED IN LOWEST POSITION, CALL LIGHT WITHIN REACH, AND BED ALARM ON.
[2016-11-16] VITALS: BP 159/65
[2016-11-16 05:40] LABS: BASOPHILS 0.2 % (0-2); EOSINOPHILS 2.6 % (0-7); HEMOGLOBIN 9.5 g/dL (12-16); IMMATURE GRANULOCYTES 0.4 % (0-5); LYMPHOCYTES 9.3 % (15-50); MCH 32.8 pg (26.0-34.0); MCHC 33.9 g/dL (31.0-37.0); MCV 96.6 fL (80.0-100.0); MEAN PLATELET VOLUME 11.4 fL (7.4-10.4); MONOCYTES 6.2 % (2-11); NEUTROPHILS 81.3 % (40-80); PLATELET COUNT 170 10x3/uL (130-400); RDW 16.7 % (11.5-14.5); WBC 8.2 10x3/uL (4.8-10.8)
[2016-11-16 05:51] LABS: ALBUMIN 2.1 g/dL (3.4-5.0); ALKALINE PHOSPHATASE 97 U/L (46-116); ALT (SGPT) 23 U/L (10-68); BILIRUBIN - TOTAL 1.63 mg/dL (0.2-1.3); CALC OSMOLALITY 254 mosm/kg (275-300); CARBON DIOXIDE 23.1 mmol/L (21.0-32.0); CHLORIDE - SERUM 95 mmol/L (98-107); CREATININE - SERUM 0.7 mg/dL (0.6-1.3); GLUCOSE 92 mg/dL (74-106); POTASSIUM - SERUM 4.2 mmol/L (3.5-5.1); PROTEIN - SERUM 5.7 g/dL (6.4-8.2); SODIUM 126 mmol/L (136-145); eGFR NON AFRICAN AMERICAN 83 mL/min (90-120)
[2016-11-16 05:54] LABS: UREA NITROGEN 17 mg/dL (7-18)
--- NOTE | 2016-11-16 07:30 | NUR ---
SLEEPING, NO DISTRESS NOTED, BREATHING EVEN UNLABORED, CALL LIGHT IN REACH, BED LOWEST POSITION, WILL CONTINUE TO MONITOR
--- NOTE | 2016-11-16 08:05 | OP ---
PATIENT NAME: ERIK BLAS MEDICAL RECORD: [id number] :[birth year] LOCATION:[facility] ADMISSION DATE:11/13/16 SURGEON: POOL WEI DO DATE OF OPERATION: 11/13/2016 PROCEDURE PERFORMED: Left hip hemiarthroplasty, cemented. PREOPERATIVE DIAGNOSIS: Left femoral neck fracture. POSTOPERATIVE DIAGNOSIS: Left femoral neck fracture. INDICATIONS: Ms. Blas is a demented 89-year-old female who had the right hip fixed with hemiarthroplasty approximately 6 weeks ago and fell early this morning at 4:30 and sustained a left femoral neck fracture, seen in the ER and after discussion with her son, desired that the hip be fixed in order to control her pain. She consented for this procedure. SURGEON: Pool Wei DO. ASSISTED BY: Parul Anton, advance nurse practitioner. ESTIMATED BLOOD LOSS: 100 mL. DESCRIPTION OF PROCEDURE: The patient was placed in the left lateral decubitus position, given a Spinal by anesthesia and then moved over to the table, placed in the medacta table in a well leg antony on the right, medacta table in the left leg and the patient was prepped and draped. A timeout was performed. The patient was given 2 grams Ancef preoperatively and an incision was made down to the tensor fascia vinicio. The fascia was then incised and then the muscle belly was from tensor fascia vinicio and retracted posteriorly. The fascia was anteriorly and then the junction between the rectus and the vastus lateralis was gone through. The rectus was then retracted medially and the tensor fascia vinicio laterally. The ascending branch of the lateral femoral circumflex artery was then encountered, tied off and coagulated and cut at that time, then dissection was made down to the hip capsule itself and then capsulotomy was performed. The femoral head and neck were encountered and a femoral neck cut was made at that time in order to remove the femoral head out of the acetabulum. This was done and the femoral neck was cut again in order to freshen up for the prosthesis. Once this was done, the irrigation was done and the femoral canal finder was entered into the femur. The broach was then broached up to a 3, seemed to have good contact and decided to cement in a #2 stem. The femoral head was trialed as well. At this time, a 47 bipolar head with a minus neck. Once the cement was placed down the canal and the stem was placed into the femoral canal, the cement held in place while the cement was hardening. Excess cement was removed at that time and ensured it would not be in the acetabulum or any soft tissue. A cement restrictor was placed in the femoral canal as well. Once the cement hardened, the head was placed on the stem and hip reduction was made. Traction was taken off and the hip seemed to be very stable on internal and external rotation, flexion, extension and the capsule was not closed at that time. Irrigation was done and the fascia over the tensor fascia vinicio was closed first with [id number] and then a running suture with #1 pop-offs and then the skin was closed with 2-0 Vicryl in inverted interrupted fashion and Prineo Dermabond type closure was done on the skin. Telfa and Tegaderm was placed over the site. The patient was taken to recovery in stable condition. Blood loss again was 100 mL. OPERATIVE REPORT [id number] ERIK BLAS TRANSINT:[id number] Voice Confirmation ID: [id number] DOCUMENT ID: [id number] POOL WEI DO at 0805 CC: [id number] DICTATION DATE: 11/13/16 1637 PROFESSOR/NURSE ANESTHETIST: 11/13/16 2216 [facility] [address] [id number]
--- NOTE | 2016-11-16 08:05 | NUR ---
AWAKE AND ALERT WITH RESPIRATIONS EVEN AND NON LABORED. CALL LIGHT IN REACH, DENIES NEEDS AT THIS TIME. WILL CONTINUE WITH PLAN OF CARE.
[2016-11-16 09:26] VITALS: BP 172/68
--- NOTE | 2016-11-16 10:45 | NUR ---
CM REASSESSMENT NOTE: PATIENT IS DISCHARGING TODAY TO A USP BED AT [facility]. [place] SON WAS NOTIFIED AND HAD ALREADY SIGNED PAPERS WITH [facility].
--- NOTE | 2016-11-16 11:01 | NUR ---
REPORT CALLED TO [facility] TO [facility], ER ADMISSIONS CALLED FOR PT BELONGINGS, SUGEY STATED THE SON PICKED THEM UP ALREADY AND THEY HAVE NOTHING OF HERS IN THE SAFE, PEREZ REMOVED TIP INTACT
--- NOTE | 2016-11-16 12:03 | NUR ---
DISCHARGE PAPERS AND INSTRUCTIONS GIVEN TO [facility], IV REMOVED TIP INTACT, DISCHARGED PRE STRETCHER WITH [facility] TO [facility]
== END 2016-11-16 12:04 | DRG 469 ==
LOC: D.ER 08:23 → D.SDCHOLD 11:25 → D.MS 11:25
PROVIDERS: Emergency Medicine; Orthopaedic Surgery; ADMIT Emergency Medicine
PROC: 0SRS0J9 Replacement of Left Hip Joint, Femoral Surface with Synthetic Substitute, Cemented, Open Approach (ICD-10-PCS; principal; 2016-11-13 13:00)
DX: S72.002A Fracture of unspecified part of neck of left femur, initial encounter for closed fracture (principal); K72.00 Acute and subacute hepatic failure without coma; G93.40 Encephalopathy, unspecified; W19.XXXA Unspecified fall, initial encounter; F03.90 Unspecified dementia, unspecified severity, without behavioral disturbance, psychotic disturbance, mood disturbance, and anxiety; I48.91 Unspecified atrial fibrillation; E03.9 Hypothyroidism, unspecified; K21.9 Gastro-esophageal reflux disease without esophagitis; F32.9 Major depressive disorder, single episode, unspecified; I10 Essential (primary) hypertension; I35.1 Nonrheumatic aortic (valve) insufficiency

== ENCOUNTER 2017-03-24 23:30 | Inpatient (IN) | payer MEDICARE, OTHER ==
[~2017-03-24] VITALS: Ht 165.1 cm; Wt 59.0 kg
--- NOTE | ~2017-03-24 | PN ---
PATIENT:ERIK BURROUGHS MEDICAL RECORD: [id number] LOCATION:[facility] ADMISSION DATE: 03/24/17 PROGRESS NOTE DATE OF SERVICE: 03/30/2017 SUBJECTIVE: The patient's case was discussed with staff. She has no new complaint. OBJECTIVE: The patient has no thoughts of harming herself or others. She is very disorganized. She has limited insight about her situation. ASSESSMENT: No change in diagnoses. PLAN: Current medicines have been reviewed and will be maintained. Long-term prognosis is guarded. TRANSINT:[id number] Voice Confirmation ID: [id number] DOCUMENT ID: [id number] LEX LARA MD at 1637 CC: [id number] DICTATION DATE: 03/30/17 1448 ADVERTISING DISPATCH CLERK: 03/30/17 1506 ADM [id number] [place] [address]
--- NOTE | ~2017-03-24 | PN ---
PATIENT:ERIK BURROUGHS MEDICAL RECORD: [id number] LOCATION:[facility] ADMISSION DATE: 03/24/17 PROGRESS NOTE DATE OF SERVICE: 04/05/2017 SUBJECTIVE: The patient's case was discussed with staff. She has no new complaint. OBJECTIVE: The patient is in good behavioral control with limited insight about her condition. She does tolerate her medicines well. Eye contact is fair. ASSESSMENT: No change in diagnoses. PLAN: The patient will be maintained on current medicines. I am concerned about her poor oral intake, but from a behavioral standpoint, she is better and I would anticipate she can reasonably be transitioned out of the hospital soon if this level of improvement is maintained. TRANSINT:[id number] Voice Confirmation ID: [id number] DOCUMENT ID: [id number] LEX LARA MD at 1422 CC: [id number] DICTATION DATE: 04/05/17 1346 ROLL DOUGH DIVIDER: 04/05/17 1404 ADM IN [id number] [place] [address]
--- NOTE | ~2017-03-24 | PSY ---
PATIENT NAME:ERIK BURROUGHS MEDICAL RECORD: [id number] : [birth year] LOCATION:[facility]6 ADMISSION DATE: 03/24/17 ACCOUNT: [id number] PSYCHIATRIC EVALUATION DATE OF EVALUATION: 03/25/17 IDENTIFYING DATA: The patient is 89 years old and she is admitted to the hospital on a voluntary basis. CHIEF COMPLAINT: Suicidal thoughts. HISTORY OF PRESENT ILLNESS: The patient was referred to us last night by the [facility]. Apparently, she was saying that she does not want to live anymore and that life was not worth living and she wanted to get a knife from the dining room and cut her own throat. The patient denies that she said this. She clearly is very confused. She is yelling out, agitated, and unable to follow directions. She is oriented only to person and does not understand why she is here. When it is explained to her, she gets angry and denies it. The patient has a son who lives in [place]. He indicates that she has had a long history of a disruptive interpersonal functioning for many years. The patient is on hosp[facility] at the [facility], although I am not sure why. The patient is unable to tell me. She is taking narcotics. I presumed that she has some condition probably a malignancy, but at this point, I do not have any records and she cannot talk to me in a way that is reliable. PAST MEDICAL HISTORY: Significant for gastroesophageal reflux disease and hypertension based on her prescribed medications. PAST PSYCHIATRIC HISTORY: Significant for an established diagnosis of dementia, although I do not have details about who made the diagnosis or when or how. FAMILY HISTORY: Unknown. SOCIAL HISTORY: The patient lives in a [facility]. She has an adult son who is involved with her care, but he lives out of state. She denies a history of drug or alcohol abuse, but just about anything she says is not reliable and would need to be independently verified. MENTAL STATUS EXAMINATION: The patient is awake, alert, and oriented to person only. Her mood is anxious. Her affect is constricted. Thought processes are circumstantial. Memory, concentration, and abstraction abilities are severely impaired and she denies that she would seek to harm herself or others as well as psychotic symptoms. ASSETS: Supportive family members. LIABILITIES: Limited insight. DIAGNOSTIC IMPRESSION: AXIS I: Senile dementia of the Alzheimer's type with behavioral disturbances. AXIS II: Deferred. AXIS III: Hypertension, gastroesophageal reflux disease. AXIS IV: Moderate stressors. AXIS V: Global assessment of functioning is 20. PLAN: At this time, the patient is admitted to the hospital secondary to suicidal thoughts and statements. It is not clear if this is related to a depressive illness or some kind of situational character pathology. She is clearly severely impaired cognitively. At this point, I plan to get more information and observe her in a safe environment and we will make medication adjustments and place her in an appropriate setting once stabilized. TRANSINT:[id number] Voice Confirmation ID: [id number] DOCUMENT ID: [id number] LEX LARA MD at 1433 CC: [id number] DICTATION DATE: 03/25/17 1338 SUPERVISOR WASH HOUSE: 03/25/17 1408 ADM IN [facility] [address] [id number]
--- NOTE | ~2017-03-24 | PN ---
PATIENT:ERIK BURROUGHS MEDICAL RECORD: [id number] LOCATION:[facility] ADMISSION DATE: 03/24/17 PROGRESS NOTE DATE OF SERVICE: 04/06/2017 SUBJECTIVE: The patient's case was discussed with staff. She has no new complaint. OBJECTIVE: The patient is in good behavioral control with limited insight about her condition. She generally tolerates her medicines well. She did have some yelling episodes and has required p.r.n. medication. At this point, I am going to discontinue her Xanax as it clearly is not helping with this level of agitation and will change her to Ativan at a dose of 0.5 mg twice daily. If her behavior improves, I would anticipate she can be transitioned out of the hospital. TRANSINT:[id number] Voice Confirmation ID: [id number] DOCUMENT ID: [id number] LEX LARA MD at 1429 CC: [id number] DICTATION DATE: 04/06/17 1432 ASSISTANT COMMUNITY DIRECTOR: 04/06/17 1512 ADM [id number] [place] [address]
--- NOTE | ~2017-03-24 | PN ---
PATIENT:ERIK BURROUGHS MEDICAL RECORD: [id number] LOCATION:[facility] ADMISSION DATE: 03/24/17 PROGRESS NOTE DATE OF SERVICE: 04/07/2017 SUBJECTIVE: The patient states that she needs to go to the bank and get some money. OBJECTIVE: The patient continues to exhibit very loud vocalization and expansive affect. Mood is alternately irritable and dysphoric. Content of thought is clearly delusional. The patient is oriented only to person. ASSESSMENT: No change in diagnosis. PLAN: 1. Maintain current medications. 2. Continue supportive therapy. TRANSINT:[id number] Voice Confirmation ID: [id number] DOCUMENT ID: [id number] CHEPE HEAD III, MD at 1045 CC: [id number] DICTATION DATE: 04/07/17 1139 INVENTORY CONTROL SPECIALIST: 04/07/17 1338 ADM [id number] [place] [id number]
--- NOTE | ~2017-03-24 | PN ---
PATIENT:ERIK BURROUGHS MEDICAL RECORD: [id number] LOCATION:[facility] ADMISSION DATE: 03/24/17 PROGRESS NOTE DATE OF SERVICE: 04/03/2017 SUBJECTIVE: No new complaint. OBJECTIVE: Staff reports the patient has been calmer. She has not been yelling either last night nor this morning. She has been cooperative with medications. She remains extremely confused. On exam, mood appears euthymic. Affect is rather reserved. Speech is quite terse. Content of thought does not exhibit overt psychosis. Sensorium shows no change. ASSESSMENT: No change in diagnosis. PLAN: 1. Maintain current medication. 2. Continue supportive therapy. TRANSINT:[id number] Voice Confirmation ID: [id number] DOCUMENT ID: [id number] CHEPE HEAD III, MD at 1830 CC: [id number] DICTATION DATE: 04/03/17 1145 SOLICITING FREIGHT AGENT: 04/03/17 1603 ADM IN [facility] [address] [id number]
--- NOTE | ~2017-03-24 | PN ---
PATIENT:ERIK BURROUGHS MEDICAL RECORD: [id number] LOCATION:[facility] ADMISSION DATE: 03/24/17 PROGRESS NOTE DATE OF SERVICE: 04/08/2017 SUBJECTIVE: The patient's case was discussed with staff. She has no new complaint. OBJECTIVE: The patient is cognitively impaired, but denies intent to harm herself or others. Eye contact is poor. ASSESSMENT: No change in diagnoses. PLAN: Current medicines and therapies have been reviewed. The patient is appropriate to be transitioned out of the hospital today. Her long-term prognosis is guarded. TRANSINT:[id number] Voice Confirmation ID: [id number] DOCUMENT ID: [id number] LEX LARA MD at 1422 CC: [id number] DICTATION DATE: 04/08/17 1434 DIRECTOR OF MIDWIFERY/STAFF MIDWIFE: 04/08/17 1549 DIS IN 04/08/[id number] [place] [address]
--- NOTE | ~2017-03-24 | PN ---
PATIENT:ERIK BURROUGHS MEDICAL RECORD: [id number] LOCATION:[facility] ADMISSION DATE: 03/24/17 PROGRESS NOTE DATE OF SERVICE: 03/31/2017 SUBJECTIVE: The patient's case was discussed with staff. She has no new complaint. OBJECTIVE: The patient is in good behavioral control with limited insight about her condition. She tolerates her medicines well. ASSESSMENT: No change in diagnoses. PLAN: Supportive and educational interventions were made. The patient is less agitated than she has been. She has no active thoughts of harming herself or others. TRANSINT:[id number] Voice Confirmation ID: [id number] DOCUMENT ID: [id number] LEX LARA MD at 1353 CC: [id number] DICTATION DATE: 03/31/171706 PERIPHERAL VASCULAR TECH: 03/31/172056 ADM [id number] [place] [id number]
--- NOTE | ~2017-03-24 | PN ---
PATIENT:ERIK BURROUGHS MEDICAL RECORD: [id number] LOCATION:[facility]za ADMISSION DATE: 03/24/17 PROGRESS NOTE DATE OF SERVICE: 03/27/2017 SUBJECTIVE: The patient's case was discussed with staff. She has no new complaint. OBJECTIVE: The patient is severely agitated, very disorganized and almost completely un-redirectable. She has very poor insight about her situation. ASSESSMENT: No change in diagnoses. PLAN: The patient's scheduled Klonopin will be discontinued along with her scheduled Risperdal. Both can be considered abject failures in attempt to bring her behavior under control. She will be treated instead with a scheduled dose of Geodon for her disorganized thought processes and agitation, and a scheduled dose of Xanax for her underlying anxiety. She will be monitored carefully for clinical changes associated with the use of the medicines. Her long-term prognosis is guarded. TRANSINT:[id number] Voice Confirmation ID: [id number] DOCUMENT ID: [id number] LEX LARA MD at 1349 CC: [id number] DICTATION DATE: 03/27/17 1236 CONSTRUCTION FIELD ENGINEER: 03/27/172030 ADM IN [facility] [address] [place] [address]
--- NOTE | ~2017-03-24 | PN ---
PATIENT:ERIK BURROUGHS MEDICAL RECORD: [id number] LOCATION:[facility] ADMISSION DATE: 03/24/17 PROGRESS NOTE DATE OF SERVICE: 04/01/2017 SUBJECTIVE: The patient's case was discussed with staff. She has no new complaint. OBJECTIVE: The patient denies intent to harm herself or others. She tolerates her medicines well. She is severely impaired cognitively. She is not eating very well. I do plan to treat her with a low dose of Megace. I anticipate she can be transitioned out of the hospital soon if the appetite returns. TRANSINT:[id number] Voice Confirmation ID: [id number] DOCUMENT ID: [id number] LEX LARA MD at 0833 CC: [id number] DICTATION DATE: 04/01/17 1409 EQUINE MANAGER: 04/01/17 1433 ADM IN [facility] [address] [id number]
--- NOTE | ~2017-03-24 | PN ---
PATIENT:ERIK BURROUGHS MEDICAL RECORD: [id number] LOCATION:[facility] ADMISSION DATE: 03/24/17 PROGRESS NOTE DATE OF SERVICE: 03/26/2017 SUBJECTIVE: The patient's case was discussed with staff. She has no new complaint. OBJECTIVE: The patient has a depressed mood, but denies that she would seek to harm herself or others. She generally tolerates her medicines well. She has limited insight about her situation. She is clearly severely impaired cognitively and will be started on Aricept to assist with her cognitive impairment. TRANSINT:[id number] Voice Confirmation ID: [id number] DOCUMENT ID: [id number] LEX LARA MD at 1215 CC: [id number] DICTATION DATE: 03/26/17 1452 SPORTS MEDICINE SPECIALIST: 03/26/172004 ADM IN [facility] [address] [place] [address]
--- NOTE | ~2017-03-24 | PN ---
PATIENT:ERIK BURROUGHS MEDICAL RECORD: [id number] LOCATION:[facility] Me[facility] ADMISSION DATE: 03/24/17 PROGRESS NOTE DATE OF SERVICE: 03/29/2017 SUBJECTIVE: The patient's case was discussed with staff. She has no new complaint. OBJECTIVE: The patient is in good behavioral control with poor insight about her condition. ASSESSMENT: No change in diagnoses. PLAN: The patient's Xanax is going to be titrated downward slightly. She has limited insight about her situation. She is taking both Depakote and Geodon, which I think have not had an opportunity to become effective. I do think she is better and we will monitor her for continued improvement. TRANSINT:[id number] Voice Confirmation ID: [id number] DOCUMENT ID: [id number] LEX LARA MD at 1442 CC: [id number] DICTATION DATE: 03/29/17 1440 BODS DEVELOPER: 03/29/17 1923 ADM IN [facility] [address] [place] [address]
--- NOTE | ~2017-03-24 | PN ---
PATIENT:ERIK BURROUGHS MEDICAL RECORD: [id number] LOCATION:[facility] Me[facility] ADMISSION DATE: 03/24/17 PROGRESS NOTE DATE OF SERVICE: 04/02/2017 SUBJECTIVE: The patient's case was discussed with staff. She has no new complaint. OBJECTIVE: The patient denies intent to harm herself or others. She generally tolerates her medicines well. ASSESSMENT: No change in diagnoses. PLAN: Current medicines and therapies have been reviewed and will be maintained. Long-term prognosis is guarded. I anticipate she can be transitioned out of the hospital soon if this level of improvement is maintained. TRANSINT:[id number] Voice Confirmation ID: [id number] DOCUMENT ID: [id number] LEX LARA MD at 1338 CC: [id number] DICTATION DATE: 04/02/17 1315 LASER ENGINEER: 04/02/17 1333 ADM [id number] [place] [id number]
[2017-03-24 23:59] VITALS: BP 117/69; BMI 21.0
[2017-03-25] MEDS ORDERED: RISPERDAL 0.50.5 MG PO (04:02)
[2017-03-25] MEDS ORDERED: SENOKOT-S TABLE1 TAB PO (04:07)
[2017-03-25] MEDS ORDERED: SEROQUEL25 MG PO (04:10)
[2017-03-25] MEDS ORDERED: DULCOLAX10 MG/SUPP RC (04:13)
[2017-03-25] MEDS ORDERED: KLONOPIN1 MG PO (04:22)
[2017-03-25] MEDS ORDERED: NORCO 7.5/325 T1 TA1 PO ×2 (04:22→04:44)
[2017-03-25] MEDS ORDERED: ALDACTONE25 MG PO (04:25)
[2017-03-25] MEDS ORDERED: ASPIRIN325 MG PO (04:26)
[2017-03-25] MEDS ORDERED: ENULOSE10 G/15 ML PO (04:28)
[2017-03-25] MEDS ORDERED: FUROSEMIDE20 MG PO (04:28)
[2017-03-25] MEDS ORDERED: MIRALAX17 GM PO (04:30)
[2017-03-25] MEDS ORDERED: OMEPRAZOLE40 MG PO (04:33)
[2017-03-25] MEDS ORDERED: PROZAC20 MG PO (04:34)
[2017-03-25] MEDS ORDERED: REMERON15 MG/UDTA PO (04:35)
[2017-03-25] MEDS ORDERED: SYNTHROID100 MCG PO (04:37)
[2017-03-25] MEDS ORDERED: ZANTAC 7575 MG PO (04:40)
[2017-03-25] MEDS ORDERED: KLONOPIN0.5 MG PO (04:40)
[2017-03-25 05:38] LABS: BASOPHILS 0.2 % (0-2); EOSINOPHILS 2.1 % (0-7); HEMATOCRIT 32.1 % (36.0-48.0); HEMOGLOBIN 10.1 g/dL (12-16); IMMATURE GRANULOCYTES 0.2 % (0-5); LYMPHOCYTES 13.1 % (15-50); MCH 30.3 pg (26.0-34.0); MCHC 31.5 g/dL (31.0-37.0); MCV 96.4 fL (80.0-100.0); MEAN PLATELET VOLUME 10.6 fL (7.4-10.4); MONOCYTES 15.4 % (2-11); RBC 3.33 10x6/uL (4.00-5.40); RDW 16.3 % (11.5-14.5); WBC 9.4 10x3/uL (4.8-10.8)
[2017-03-25 05:46] LABS: PLATELET COUNT 285 10x3/uL (130-400)
[2017-03-25 06:01] LABS: HEMOGLOBIN A1C 5.5 % (4.8-6.0)
[2017-03-25 06:18] LABS: ANION GAP 12.1 mmol/L (8-16); BILIRUBIN - TOTAL 0.36 mg/dL (0.2-1.3); CALCIUM 9.3 mg/dL (8.5-10.1); CARBON DIOXIDE 28.5 mmol/L (21.0-32.0); CHOL - HDL RATIO 4.3 ratio (2.3-4.1); LDL-HDL RATIO 2.7 ratio (1.5-3.5); POTASSIUM - SERUM 4.6 mmol/L (3.5-5.1); PROTEIN - SERUM 6.7 g/dL (6.4-8.2); THYROID STIMULATING HORMONE 8.72 uIU/mL (0.36-3.74)
[2017-03-25 09:31] VITALS: BP 142/79
[2017-03-25 12:42] VITALS: BMI 21.0
[2017-03-25 13:36] VITALS: Ht 165.1 cm; Wt 59.0 kg
[2017-03-25 19:30] VITALS: BP 142/66
[2017-03-26 06:00] LABS: HEMATOCRIT 30.6 % (36.0-48.0); HEMOGLOBIN 9.8 g/dL (12-16)
[2017-03-26 07:26] LABS: FOLATE (FOLIC ACID) - SERUM 13.4 ng/mL (>3.0); RAPID PLASMA REAGIN Non Reactive (Non Reactive)
[2017-03-26 08:30] VITALS: BP 114/056
[2017-03-26 09:17] LABS: VITAMIN D 25 HYDROXY 36.9 ng/mL (30.0-100.0)
[2017-03-26 19:53] VITALS: BP 162/89
[2017-03-27 09:11] VITALS: BP 138/61
[2017-03-27 19:30] VITALS: BP 119/78
[2017-03-28 07:00] VITALS: BP 138/71
[2017-03-28 20:10] VITALS: BP 150/60
[2017-03-29 07:00] VITALS: BP 138/57
[2017-03-29 19:46] VITALS: BP 116/60
[2017-03-30 08:30] VITALS: BP 140/072
[2017-03-30 19:36] VITALS: BP 143/90
[2017-03-31 09:47] VITALS: BP 120/70
[2017-03-31 15:49] LABS: APPEARANCE HAZY (CLEAR); BILIRUBIN NEGATIVE (NEGATIVE); COLOR YELLOW (YELLOW); GLUCOSE NEGATIVE (NEGATIVE); KETONE NEGATIVE (NEGATIVE); NITRITE POSITIVE (NEGATIVE); PROTEIN TRACE mg/dL (NEGATIVE); SPECIFIC GRAVITY 1.015 (1.005-1.020); UROBILINOGEN NORMAL (NORMAL)
[2017-03-31 15:53] LABS: EPITHELIAL CELLS 0-5 /hpf (0-5); RED CELLS - URINE OCC /hpf (0-5); WHITE CELLS - URINE >50 /hpf (0-5)
[2017-03-31 15:54] LABS: BACTERIA MANY /hpf (NONE SEEN)
[2017-03-31 19:05] VITALS: BP 120/62
[2017-04-01 08:30] VITALS: BP 125/056
[2017-04-01 19:30] VITALS: BP 115/68
[2017-04-02 10:40] VITALS: BP 126/76
[2017-04-02 20:15] VITALS: BP 107/056
[2017-04-03 07:43] VITALS: BP 126/63
[2017-04-03 19:30] VITALS: BP 148/87
[2017-04-04 08:30] VITALS: BP 130/054
[2017-04-04 19:30] VITALS: BP 138/78
[2017-04-05 08:46] VITALS: BP 148/71
[2017-04-05 19:54] VITALS: BP 178/73
[2017-04-06 08:00] VITALS: BP 112/60
[2017-04-06 21:23] VITALS: BP 107/64
[2017-04-07 08:01] VITALS: BP 136/64
[2017-04-07 19:30] VITALS: BP 138/79
[2017-04-08 10:00] VITALS: BP 116/72
[2017-04-08] MEDS ORDERED: MEGACE40 MG PO (10:37)
[2017-04-08] MEDS ORDERED: ARICEPT5 MG PO (10:38)
[2017-04-08] MEDS ORDERED: SYNTHROID75 MCG PO (10:41)
== END 2017-04-08 13:00 | DRG 57 ==
LOC: D.PSYCH 23:30
PROVIDERS: Family Medicine; Psychiatry & Neurology Psychiatry
DX: G30.1 Alzheimer's disease with late onset (principal); F02.81 Dementia in other diseases classified elsewhere, unspecified severity, with behavioral disturbance; R45.851 Suicidal ideations; F32.9 Major depressive disorder, single episode, unspecified; K21.9 Gastro-esophageal reflux disease without esophagitis; I10 Essential (primary) hypertension; E03.9 Hypothyroidism, unspecified; K59.00 Constipation, unspecified; D64.9 Anemia, unspecified; K64.9 Unspecified hemorrhoids; I06.1 Rheumatic aortic insufficiency